=== PATIENT | female | born 1955 | race Caucasian/White ===

== ENCOUNTER → 2016-05-04 | Outpatient (CLI) | payer OTHER ==
[~2016-05-04] MED LIST: FLOM5CAP PO; PERC5TAB6 PO
[2016-05-04 12:33] LABS: ALBUMIN 3.5 GM/DL (3.2-5.2); ALBUMIN/GLOBULIN RATIO 1.09 (1.00-1.93); ALKALINE PHOSPHATASE 40 U/L (45-117); ALT/SGPT 57 U/L (12-78); ANION GAP 10 MEQ/L (8-16); AST/SGOT 30 U/L (15-37); BILIRUBIN,TOTAL 0.5 MG/DL (0.2-1.0); BLOOD UREA NITROGEN 12 MG/DL (7-18); CALCIUM LEVEL 8.6 MG/DL (8.8-10.2); CARBON DIOXIDE LEVEL 28 MEQ/L (21-32); CHLORIDE LEVEL 106 MEQ/L (98-107); CHOLESTEROL LEVEL 136 MG/DL (<200); CREATININE FOR GFR 0.66 MG/DL (0.55-1.02); GLOMERULAR FILTRATION RATE > 60.0 (>45); GLUCOSE, FASTING 117 MG/DL (80-110); SODIUM LEVEL 144 MEQ/L (136-145); TOTAL PROTEIN 6.7 GM/DL (6.4-8.2); TRIGLYCERIDES LEVEL 123 MG/DL (<150)
== END ==
LOC: M WUC 10:13
PROVIDERS: ATTEND Emergency Medicine
DX: R73.01 Impaired fasting glucose (principal); E55.9 Vitamin D deficiency, unspecified; I10 Essential (primary) hypertension

== ENCOUNTER → 2016-06-14 | Outpatient (REF) | payer OTHER | LOC: M SFHCWAGY 09:25 | PROVIDERS: ATTEND Nurse Practitioner Women's Health | DX: Z12.4 Encounter for screening for malignant neoplasm of cervix (principal); Z12.31 Encounter for screening mammogram for malignant neoplasm of breast ==

== ENCOUNTER → 2016-06-14 | Outpatient (CLI) | payer OTHER ==
--- NOTE | 2016-06-14 13:43 | REPMRS ---
Patient History The patient states she had a clinical breast exam in 06/27 Patient is postmenopausal. Family history of colorectal cancer in sister at age 56, ovarian cancer in sister at age 51, and breast cancer in maternal grandmother at age 50 or over. Took hormonal contraceptives for 1 year. Digital Woman Screen Mammo: June 14, 2016 - Exam #: [id number] Bilateral CC and MLO view(s) were taken. Technologist: Natalie Prado, Technologist Prior study comparison: June 01, 2015, digital woman screen mammo performed at [facility]. May 29, 2014, digital woman screen mammo performed at [facility]. May 28, 2013, bilateral bilat screen digital mammo, performed at [facility] FINDINGS: There are scattered fibroglandular densities. There has been no change in the appearance of the mammogram from the prior studies. There is a mild amount of scattered fibroglandular density which is fairly symmetric. There is no interval development of dominant mass, architectural distortion, or clustered microcalcification suggestive of malignancy. ASSESSMENT: BI-RADS/ACR category 1 mammogram. Negative. Recommendation Routine screening mammogram in 1 year (for women over age 40). This mammogram was interpreted with the aid of an FDA-approved computer-aided dectection system. Electronically Signed By: Braulio Elias MD 06/14/16 [id number]
== END ==
LOC: M WHC 09:17
PROVIDERS: ATTEND Nurse Practitioner Women's Health
DX: Z12.31 Encounter for screening mammogram for malignant neoplasm of breast (principal); Z78.0 Asymptomatic menopausal state; Z80.0 Family history of malignant neoplasm of digestive organs; Z80.41 Family history of malignant neoplasm of ovary

== ENCOUNTER → 2016-06-14 | Outpatient (CLI) | payer OTHER ==
--- NOTE | 2016-06-15 13:33 | DEXA ---
AP SPINE L1 - L4 1.440 2.0 2.4 LT FEMUR TOTAL 1.207 1.6 2.0 RT FEMUR TOTAL 1.232 1.8 2.1 TOTAL BODY TOTAL OTHER DUAL FEMUR FRAX* ASSESSMENT Risk factors: None. 10 year probability of fracture Major osteoporotic fracture 5.8 % Hip fracture 0.1 % COMMENTS: Normal bone densitometry of the spine and hips. The density of the spine has increased 11.4% since the initial exam on 2005. The spine density has increased 7.5% since the most recent exam on 04/10/2008. The density of the left hip has decreased 4.8% since the initial exam on 2005. The density of the left hip has decreased 5.7% since the most recent exam on . The density of the right hip has increased 4.9% since the initial exam on 2005. The density of the right hip has increased 1.2% since the most recent exam on . FOLLOW-UP: Recommendation for the next bone density exam: 5 years. MARA
== END ==
LOC: M WHC 09:21
PROVIDERS: ATTEND Emergency Medicine
DX: M81.0 Age-related osteoporosis without current pathological fracture (principal)

== ENCOUNTER → 2016-07-13 | Outpatient (REF) | payer OTHER | LOC: M LAB REF 19:54 | PROVIDERS: ATTEND Physician Assistant Medical | DX: R31.9 Hematuria, unspecified (principal) ==

== ENCOUNTER → 2016-07-21 | Outpatient (REF) | payer OTHER ==
[2016-07-21 19:20] LABS: CALCIUM OXALATE CRYSTALS MODERATE; YEAST LIKE CELL URINE AUTO SMALL
== END ==
LOC: M SMT 16:47
PROVIDERS: ATTEND Nurse Practitioner Women's Health
DX: R31.29 Other microscopic hematuria (principal)

== ENCOUNTER → 2016-08-03 | Outpatient (CLI) | payer OTHER ==
[~2016-08-03] MED LIST changes: +ISOVUE-370 76% 100ML VIAL (Q9967) As Ordered ONE
--- NOTE | 2016-08-03 15:52 | REP ---
Clinical: Microscopic hematuria. Technique: Axial precontrast, contrast enhanced, and delayed images of the abdomen and pelvis using 100 ml Isovue 370 intravenous contrast material coronal and sagittal re-formations. Comparison: 10/07/2015. Findings: There is mild acute left-sided obstructive uropathy including perinephric and proximal periureteral stranding as well as associated hydroureteronephrosis secondary to a 7 mm calculus obstructing the ureteropelvic junction (images 70 - 71). No further urinary tract calcifications are appreciated. The kidneys demonstrate few bilateral cysts measuring up to 2 cm in the upper pole right kidney and 1.5 cm mid pole left kidney. There is evidence for mild cortical scarring along the lateral aspect of the left kidney which appears chronic. The bladder is unremarkable. Liver, spleen, pancreas, and bilateral adrenal glands are normal. The patient is status post cholecystectomy with compensatory dilatation to the common bile duct. The enteric system is without obstruction or acute inflammatory process and few scattered sigmoid diverticula are noted without acute diverticulitis. Pelvis again demonstrates normal bladder as well as normal uterus / adnexa. No pelvic fluid or ascites. No free air. No adenopathy. Vasculature is normal. Musculoskeletal structures are intact without focal osseous abnormality. Lung bases are clear. Impression: 1. Acute mild left-sided obstructive uropathy with a 7 mm calculus at the ureteropelvic junction. Few bilateral renal cysts measuring up to 2 cm diameter. 2. Few scattered colonic diverticula without acute diverticulitis. Signed by Jovanni Sanches MD 08/03/2016 03:44 P
== END ==
LOC: M RAD 14:10
PROVIDERS: ATTEND Nurse Practitioner Women's Health
DX: R31.29 Other microscopic hematuria (principal); N20.0 Calculus of kidney; N28.1 Cyst of kidney, acquired; K57.30 Diverticulosis of large intestine without perforation or abscess without bleeding
CPT/HCPCS: 74178; Q9967

== ENCOUNTER → 2016-08-18 | Day surgery (SDC) | payer OTHER ==
[~2016-08-18] VITALS: Ht 149.9 cm; Wt 94.3 kg
[~2016-08-18] MED LIST changes: +ASPI81CH3 PO; +ATEN50TA2 PO; +BIOT50004 PO; +DRIS50002 PO; +FISH5CAP PO; +GLUC1CAP9 PO; +GLUC1TAB PO; +GLYCOPYRROLATE INJ 0.2 MG/ML 2 ML VIAL As Ordered ONE; +HYDR50TAB PO; -ISOVUE-370 76% 100ML VIAL (Q9967) As Ordered ONE; +LIDOCAINE 2% INJ 100 MG/5 ML SDV (FOR ANES.) As Ordered ONE; +LR 1,000 ML IV SCH; +MIDAZOLAM INJ 2 MG/2 ML VIAL (J2250) As Ordered ONE; +MULT1TAB18 PO; +MYRB50TA PO; +ONDANSETRON 4MG/2ML VIAL (J2405) As Ordered ONE; +ONDANSETRON 4MG/2ML VIAL (J2405) IV PRN; +PERCOCET 5MG/325MG TAB As Ordered ONE; +PERCOCET 5MG/325MG TAB PO PRN; +PROPOFOL 200 MG/20 ML VIAL As Ordered ONE; +RA C PO; +SUCCINYLCHOLINE 100 MG/5 ML SYRINGE (J0330) As Ordered ONE; +VITA400T15 PO; +VITA50003 PO; +XYZA5TAB4 PO; +ceFAZolin 2 GM/D5W 50 ML IV BAG (J0690) As Ordered ONE; +dexameTHASONE 4 MG/ML 1ML VIAL (J1100) As Ordered ONE; +ePHEDrine SULFATE 25 MG/5 ML(5MG/ML) SYRINGE As Ordered ONE; +fentaNYL 100 MCG/2 ML INJECTION (J3010) As Ordered ONE
--- NOTE | 2016-08-18 08:52 | REP ---
KUB: Single view. History: 7 mm left UPJ stone. Comparison: KUB study November 19, 2015. Comparison is made with CT examination 08/03/2016. Findings: There is a surgical clip in the right upper quadrant suggesting previous cholecystectomy. The bowel gas pattern is normal. Psoas margins and flank stripes are intact. No mass or organomegaly is seen. There is a faint 4 x 6 mm calcific opacity projecting at the upper pole left kidney consistent with an intrarenal calcification. There is vascular calcification in the left pelvis just below the SI joint which is unchanged from December 01, 2015 study. There is a faint opacity over the left psoas margin at the level of the transverse process at L4. This is equivocal. No definite ureteral calculus is seen on today's radiographs. Signed by Oz Elias MD 08/18/2016 10:18 A
--- NOTE | 2016-08-18 12:13 | REP ---
RETROGRADE PYELOGRAM: Two views. HISTORY: Kidney stone. 6 seconds of fluoroscopy time is reported. FINDINGS: A sequence of two fluoroscopically obtained last image hold films of the abdomen document double pigtail ureteral stent placement and ureteral contrast. No laterality markers. Signed by Oz Elias MD 08/18/2016 03:07 P
[2016-08-18] MEDS: PERCOCET 5MG/325MG TAB PO PRN ×2 (12:35→13:05)
[2016-08-18] MEDS: fentaNYL 100 MCG/2 ML INJECTION (J3010) IV PRN ×4 (12:36→13:20)
--- NOTE | 2016-08-18 13:01 | RO ---
DATE OF PROCEDURE: 08/18/2016 PREPROCEDURE DIAGNOSIS: Left ureteral stone. POSTPROCEDURE DIAGNOSIS: Left ureteral stone. PROCEDURE: Cystoscopy, left ureteroscopy and basket extraction of stone, left retrograde pyelogram with intraoperative interpretation of images, left ureteral stent placement. SURGEON: Dr. Rolan Quiles CHURNER: None. ANESTHESIA: General. OPERATIVE INDICATIONS: This is a 60-year-old female who was brought to the operating room today for a planned left Extracorporeal shock wave lithotripsy for a 7 mm proximal left ureteral stone. The stone had migrated distally and we could not see the stone well with fluoroscopy for planned Extracorporeal shock wave lithotripsy. We therefore did not proceed with Extracorporeal shock wave lithotripsy and obtained a consent from the to proceed with a left ureteroscopy and basket extraction of stone. DESCRIPTION OF PROCEDURE: The patient was brought to the operating room, where general anesthesia was induced. Prophylactic antibiotics were infused. The patient was then placed in the dorsal lithotomy position and prepped and draped in the usual sterile fashion. A rigid cystoscope was then advanced into the urethral meatus and advanced into the bladder. A wire was then advanced up the left collecting system. The wire was secured to the drape to serve as a safety wire. We then went up the left collecting system with a short semi rigid ureteroscope and within the distal left ureter a 7 mm stone was seen. A basket was then introduced. I broke the stone into two smaller fragments. Each of these fragments were removed using a basket. Once that was done, the remainder of the examination showed no additional stones. A retrograde pyelogram was performed and was notable for moderate to severe left hydroureteronephrosis. There was also a moderate amount of edema and scarring in the area where the stone was found. Because of this, decision was made to leave a stent. At this point, the ureteroscope was removed and the previously placed wire was utilized to advance a #6-Belarusian x 22-32 cm JJ ureteral stent up the left collecting system. The wire was then removed, and there were adequate curls of the stent in the right renal pelvis and in the bladder. The bladder was then emptied of all fluid, and this marked the conclusion of the procedure. The patient was then taken out of the dorsal lithotomy position, awakened from anesthesia, and transported to the recovery room in stable condition. ESTIMATED BLOOD LOSS: 0 mL. COMPLICATIONS: None. SPECIMENS: Kidney stone fragments. PLAN: The patient will followup in the clinic in a few weeks for stent removal.
[2016-08-18 14:45] VITALS: BP 165/84
== END | disposition home or self-care (01) ==
LOC: M SDC 06:55
PROVIDERS: ATTEND Urology
DX: N20.1 Calculus of ureter (principal); I10 Essential (primary) hypertension; K57.32 Diverticulitis of large intestine without perforation or abscess without bleeding; R32 Unspecified urinary incontinence; E78.5 Hyperlipidemia, unspecified; R29.898 Other symptoms and signs involving the musculoskeletal system; Z88.8 Allergy status to other drugs, medicaments and biological substances; Z79.899 Other long term (current) drug therapy; Z79.82 Long term (current) use of aspirin; Z98.51 Tubal ligation status
CPT/HCPCS: 52332; 52352; 74000; 74420; 82360; 88300; C1726; C2617; J0330; J0690; J1100; J2250; J2405; J3010

== ENCOUNTER → 2016-08-23 | Outpatient (REF) | payer OTHER ==
[~2016-08-23] MED LIST changes: -GLYCOPYRROLATE INJ 0.2 MG/ML 2 ML VIAL As Ordered ONE; -LIDOCAINE 2% INJ 100 MG/5 ML SDV (FOR ANES.) As Ordered ONE; -LR 1,000 ML IV SCH; -MIDAZOLAM INJ 2 MG/2 ML VIAL (J2250) As Ordered ONE; -ONDANSETRON 4MG/2ML VIAL (J2405) As Ordered ONE; -ONDANSETRON 4MG/2ML VIAL (J2405) IV PRN; -PERCOCET 5MG/325MG TAB As Ordered ONE; -PERCOCET 5MG/325MG TAB PO PRN; -PROPOFOL 200 MG/20 ML VIAL As Ordered ONE; -SUCCINYLCHOLINE 100 MG/5 ML SYRINGE (J0330) As Ordered ONE; -ceFAZolin 2 GM/D5W 50 ML IV BAG (J0690) As Ordered ONE; -dexameTHASONE 4 MG/ML 1ML VIAL (J1100) As Ordered ONE; -ePHEDrine SULFATE 25 MG/5 ML(5MG/ML) SYRINGE As Ordered ONE; -fentaNYL 100 MCG/2 ML INJECTION (J3010) As Ordered ONE
== END ==
LOC: M SMT 17:23
PROVIDERS: ATTEND Nurse Practitioner Women's Health
DX: R30.0 Dysuria (principal)

== ENCOUNTER → 2016-09-20 | Outpatient (REF) | payer OTHER ==
[~2016-09-20] MED LIST changes: +PERC5TAB12 PO; -PERC5TAB6 PO; +VITA1CAP40 PO; -VITA50003 PO
== END ==
LOC: M SMT 17:38
PROVIDERS: ATTEND Nurse Practitioner Women's Health
DX: N39.0 Urinary tract infection, site not specified (principal)

== ENCOUNTER 2017-01-30 06:46 | Day surgery (SDC) | payer OTHER ==
[~2017-01-30] VITALS: Ht 149.9 cm; Wt 92.1 kg
[2017-01-30] MEDS: NS 1,000 ML IV ONE (07:00)
--- NOTE | 2017-01-30 08:05 | ROOR ---
Patient Name: Eleni Prabhakar Procedure Date: 01/30/2017 7:27 AM Date of : 1955 Age: 61 Room: [facility] Gender: Female Note Status: Finalized Procedure: Total Colonoscopy to Cecum + Biopsy Polypectomy Indications: Colon cancer screening in patient at increased risk: Colorectal cancer in sister, High risk colon cancer surveillance: Personal history of colonic polyps, Last colonoscopy: 2014 Providers: John Barr MD Referring MD: SISSY MARTINEZ MD Requesting Provider: Medicines: Monitored Anesthesia Care Complications: No immediate complications. Procedure: Pre-Anesthesia Assessment: - The heart rate, respiratory rate, oxygen saturations, blood pressure, adequacy of pulmonary ventilation, and response to care were monitored throughout the procedure. The Colonoscope was introduced through the anus and advanced to the cecum, identified by appendiceal orifice and ileocecal valve. The colonoscopy was performed without difficulty. The patient tolerated the procedure well. The quality of the bowel preparation was excellent. Findings: The perianal and digital rectal examinations were normal. Non-bleeding internal hemorrhoids were found during retroflexion. The hemorrhoids were small and Grade I (internal hemorrhoids that do not prolapse). Multiple small and large-mouthed diverticula were found in the recto-sigmoid colon, sigmoid colon and descending colon. A small polyp was found in the transverse colon. The polyp was sessile. The polyp was removed with a jumbo cold forceps. Resection and retrieval were complete. The exam was otherwise without abnormality on direct and retroflexion views. Impression: - Non-bleeding internal hemorrhoids. - Diverticulosis in the recto-sigmoid colon, in the sigmoid colon and in the descending colon. - One small polyp in the transverse colon, removed with a jumbo cold forceps. Resected and retrieved. - The examination was otherwise normal on direct and retroflexion views. - The exam was otherwise normal to the cecum. Recommendation: - Patient has a contact number available for emergencies. The signs and symptoms of potential delayed complications were discussed with the patient. Return to normal activities tomorrow. Written discharge instructions were provided to the patient. - High fiber diet. - Discharge patient to home. - Continue present medications. - Await pathology results. - Telephone GI clinic for pathology results in 1 week. - Repeat colonoscopy in 5 years for surveillance based on pathology results. - Return to referring physician. - The findings and recommendations were discussed with the patient's family. John Barr MD John Barr MD 01/30/2017 8:05:33 AM This report has been signed electronically. Number of Addenda: 0 Note Initiated On: 01/30/2017 7:27 AM Estimated Blood Loss: Estimated blood loss: none.
[2017-01-30] MEDS ORDERED: LIDOCAINE 2% INJ 100 MG/5 ML SDV (FOR ANES.) As Ordered ONE (08:15)
[2017-01-30] MEDS ORDERED: PROPOFOL 500 MG/50 ML VIAL As Ordered ONE (08:15)
[2017-01-30 08:20] VITALS: BP 165/73
== END 2017-01-30 08:37 | disposition home or self-care (01) ==
LOC: M OPP 06:46
PROVIDERS: ATTEND Internal Medicine Gastroenterology
DX: Z12.11 Encounter for screening for malignant neoplasm of colon (principal); K64.0 First degree hemorrhoids; K57.30 Diverticulosis of large intestine without perforation or abscess without bleeding; D12.3 Benign neoplasm of transverse colon; Z80.0 Family history of malignant neoplasm of digestive organs; Z86.010 Personal history of colon polyps; I10 Essential (primary) hypertension; Z87.442 Personal history of urinary calculi; M13.872 Other specified arthritis, left ankle and foot; Z79.82 Long term (current) use of aspirin

== ENCOUNTER → 2017-05-03 | Outpatient (CLI) | payer OTHER ==
[2017-05-03 09:46] LABS: ESTIMATED AVERAGE GLUCOSE 123 MG/DL (60-110); HEMOGLOBIN A1c 5.9 %
[2017-05-03 09:55] LABS: ALBUMIN 3.7 GM/DL (3.2-5.2); ALBUMIN/GLOBULIN RATIO 1.23 (1.00-1.93); ALKALINE PHOSPHATASE 43 U/L (45-117); ALT/SGPT 37 U/L (12-78); ANION GAP 9 MEQ/L (8-16); AST/SGOT 18 U/L (7-37); BILIRUBIN,TOTAL 0.4 MG/DL (0.2-1.0); BLOOD UREA NITROGEN 16 MG/DL (7-18); CALCIUM LEVEL 8.6 MG/DL (8.8-10.2); CARBON DIOXIDE LEVEL 28 MEQ/L (21-32); CHLORIDE LEVEL 108 MEQ/L (98-107); CHOLESTEROL LEVEL 149 MG/DL (<200); CREATININE FOR GFR 0.56 MG/DL (0.55-1.30); GLOMERULAR FILTRATION RATE > 60.0 (>45); GLUCOSE, FASTING 113 MG/DL (70-100); HDL CHOLESTEROL 47 MG/DL (>40); LDL CHOLESTEROL 81.4 MG/DL (<100); NON-HDL-C 102 MG/DL; POTASSIUM SERUM 3.9 MEQ/L (3.5-5.1); SODIUM LEVEL 145 MEQ/L (136-145); TOTAL PROTEIN 6.7 GM/DL (6.4-8.2); TRIGLYCERIDES LEVEL 103 MG/DL (<150)
[2017-05-03 11:05] LABS: TOTAL 25(OH) VITAMIN D 50.4 NG/ML (30.0-100.0)
== END ==
LOC: M WUC 08:05
DX: E78.2 Mixed hyperlipidemia (principal); E55.9 Vitamin D deficiency, unspecified; R73.01 Impaired fasting glucose; I10 Essential (primary) hypertension

== ENCOUNTER → 2017-05-16 | Outpatient (CLI) | payer OTHER ==
[2017-05-16 12:37] LABS: FERRITIN 115 NG/ML (8-252); IRON (FE) 130 UG/DL (50-170); PERCENT SATURATION 41.1 % (13.2-45.0); TOTAL IRON BINDING CAPACITY 316 UG/DL (250-450)
== END ==
LOC: M WUC 09:44
DX: E83.110 Hereditary hemochromatosis (principal)
CPT/HCPCS: 83550

== ENCOUNTER → 2017-11-01 | Outpatient (CLI) | payer OTHER ==
[2017-11-01 14:12] LABS: TOTAL 25(OH) VITAMIN D 57.4 NG/ML (30.0-100.0)
[2017-11-01 14:31] LABS: ALBUMIN 3.5 GM/DL (3.2-5.2); ALBUMIN/GLOBULIN RATIO 1.09 (1.00-1.93); ALKALINE PHOSPHATASE 36 U/L (45-117); ALT/SGPT 54 U/L (12-78); ANION GAP 9 MEQ/L (8-16); AST/SGOT 22 U/L (7-37); BILIRUBIN,TOTAL 0.4 MG/DL (0.2-1.0); BLOOD UREA NITROGEN 15 MG/DL (7-18); CALCIUM LEVEL 8.7 MG/DL (8.8-10.2); CARBON DIOXIDE LEVEL 29 MEQ/L (21-32); CHLORIDE LEVEL 108 MEQ/L (98-107); CHOLESTEROL LEVEL 150 MG/DL (<200); CHOLESTEROL RISK RATIO 3.333 (<5); CREATININE FOR GFR 0.62 MG/DL (0.55-1.30); GLOMERULAR FILTRATION RATE > 60.0 (>45); GLUCOSE, FASTING 118 MG/DL (70-100); HDL CHOLESTEROL 45 MG/DL (>40); LDL CHOLESTEROL 82.6 MG/DL (<100); NON-HDL-C 105 MG/DL; POTASSIUM SERUM 3.7 MEQ/L (3.5-5.1); SODIUM LEVEL 146 MEQ/L (136-145); TOTAL PROTEIN 6.7 GM/DL (6.4-8.2); TRIGLYCERIDES LEVEL 112 MG/DL (<150)
[2017-11-01 15:04] LABS: ESTIMATED AVERAGE GLUCOSE 117 MG/DL (60-110); HEMOGLOBIN A1c 5.7 %
== END ==
LOC: M WUC 09:02
DX: E78.2 Mixed hyperlipidemia (principal); E55.9 Vitamin D deficiency, unspecified; R73.01 Impaired fasting glucose; I10 Essential (primary) hypertension
CPT/HCPCS: 80053

== ENCOUNTER 2018-04-07 15:03 | Emergency (ER) | payer OTHER ==
[~2018-04-07] VITALS: Ht 149.9 cm; Wt 90.9 kg
[~2018-04-07 15:03] MED LIST changes: -DRIS50002 PO; +DRIS50003 PO; +FLOM0.4C39 PO; -FLOM5CAP PO; -RA C PO; +RA C100C11 PO; -VITA1CAP40 PO; +VITA50005 PO
--- NOTE | 2018-04-07 16:09 | REP ---
Clinical: Trauma . Comparison: None . Findings: The ventricles, sulci, and cisterns are normal in position and appearance. Bray-white differentiation is maintained. No acute intracranial hemorrhage, mass/mass effect, pathology or trauma/injury. No evidence for acute infarction. No extra-axial fluid collection. Calvarium is intact. Paranasal sinuses and mastoid air cells are clear. Impression: Normal noncontrast head CT. No evidence for acute intracranial pathology or trauma/injury. Electronically Signed by Jovanni Sanches MD 04/07/2018 04:01 P
[2018-04-07 16:33] VITALS: BP 146/71
== END 2018-04-07 16:45 | disposition home or self-care (01) ==
LOC: M ED 15:03
DX: S09.90XA Unspecified injury of head, initial encounter (principal); W00.0XXA Fall on same level due to ice and snow, initial encounter; Y92.096 Garden or yard of other non-institutional residence as the place of occurrence of the external cause; I10 Essential (primary) hypertension; Z88.8 Allergy status to other drugs, medicaments and biological substances; Z79.899 Other long term (current) drug therapy; Z79.82 Long term (current) use of aspirin

== ENCOUNTER → 2018-05-13 | Outpatient (CLI) | payer OTHER ==
[2018-05-13 18:49] LABS: ALBUMIN 3.5 GM/DL (3.2-5.2); ALT/SGPT 40 U/L (12-78); BILIRUBIN,TOTAL 0.5 MG/DL (0.2-1.0); BLOOD UREA NITROGEN 14 MG/DL (7-18); CALCIUM LEVEL 8.4 MG/DL (8.8-10.2); CARBON DIOXIDE LEVEL 30 MEQ/L (21-32); CHLORIDE LEVEL 107 MEQ/L (98-107); CHOLESTEROL LEVEL 165 MG/DL (<200); CHOLESTEROL RISK RATIO 3.666 (<5); CREATININE FOR GFR 0.59 MG/DL (0.55-1.30); GLOMERULAR FILTRATION RATE > 60.0 (>45); GLUCOSE, FASTING 111 MG/DL (70-100); HDL CHOLESTEROL 45 MG/DL (>40); LDL CHOLESTEROL 97 MG/DL (<100); NON-HDL-C 120 MG/DL; POTASSIUM SERUM 3.8 MEQ/L (3.5-5.1); SODIUM LEVEL 143 MEQ/L (136-145); TOTAL PROTEIN 6.6 GM/DL (6.4-8.2); TRIGLYCERIDES LEVEL 115 MG/DL (<150)
[2018-05-13 19:00] LABS: HEMOGLOBIN A1c 5.7 %
[2018-05-14 10:59] LABS: TOTAL 25(OH) VITAMIN D 63.6 NG/ML (30.0-100.0)
== END ==
LOC: M WUC 08:46
PROVIDERS: ATTEND Physician Assistant
DX: I10 Essential (primary) hypertension (principal); E78.2 Mixed hyperlipidemia; E55.9 Vitamin D deficiency, unspecified; R73.01 Impaired fasting glucose

== ENCOUNTER → 2018-06-21 | Outpatient (CLI) | payer OTHER ==
[~2018-06-21] MED LIST changes: -ASPI81CH3 PO; +ASPI81CH48 PO
--- NOTE | 2018-06-21 17:20 | REPMRS ---
Patient History The patient states she has not had a clinical breast exam in over a year. Patient is postmenopausal. Family history of ovarian cancer at age 51 in sister, colorectal cancer at age 56 in sister, breast cancer at age 50 or over in maternal grandmother. Took hormonal contraceptives for 1 year. Digital Woman Screen Mammo: June 21, 2018 - Exam #: [id number] Bilateral CC and MLO view(s) were taken. Technologist: Mally Hodge Technologist Prior study comparison: June 19, 2017, digital woman screen mammo performed at [facility]. June 14, 2016, digital woman screen mammo performed at [facility]. June 01, 2015, digital woman screen mammo performed at [facility]. FINDINGS: There are scattered fibroglandular densities. There has been no change in the appearance of the mammogram from the prior studies. There is a mild amount of scattered fibroglandular density which is fairly symmetric. There is no interval development of dominant mass, architectural distortion, or clustered microcalcification suggestive of malignancy. 3-D tomosynthesis shows no additional findings. Assessment: BI-RADS/ACR category 1 mammogram. Negative Mammogram. Recommendation Routine screening mammogram of both breasts in 1 year (for women over age 40). This patient's Lifetime Breast Cancer RIsk is estimated at 6.7 %. This mammogram was interpreted with the aid of an FDA-approved computer-aided dectection system. Electronically Signed By: Braulio Elias MD 06/21/18 [id number]
== END ==
LOC: M WHC 13:50
PROVIDERS: ATTEND Physician Assistant
DX: Z12.31 Encounter for screening mammogram for malignant neoplasm of breast (principal); Z78.0 Asymptomatic menopausal state; Z80.41 Family history of malignant neoplasm of ovary; Z80.0 Family history of malignant neoplasm of digestive organs; Z92.0 Personal history of contraception

== ENCOUNTER → 2018-09-07 | Outpatient (REF) | payer MEDICARE, OTHER ==
[2018-09-07 14:03] LABS: APPEARANCE, URINE HAZY (CLEAR); BACTERIA, URINE AUTO NEGATIVE (NEGATIVE); BILIRUBIN, URINE AUTO NEGATIVE (NEGATIVE); BLOOD, URINE BLOOD NEGATIVE (NEGATIVE); COLOR, URINE YELLOW (YELLOW); GLUCOSE, URINE (UA) AUTO NEGATIVE (NEGATIVE); KETONE, URINE AUTO NEGATIVE (NEGATIVE); LEUKOCYTE ESTERASE, URINE AUTO NEGATIVE (NEGATIVE); MUCUS, URINE SMALL (NEGATIVE); NITRITE, URINE AUTO NEGATIVE (NEGATIVE); PROTEIN, URINE AUTO NEGATIVE (NEGATIVE); RBC, URINE AUTO 0 /HPF (0-3); SPECIFIC GRAVITY URINE AUTO 1.018 (1.002-1.035); SQUAMOUS EPITHELIAL CELL UR AU 0 /HPF (0-6); UROBILINOGEN, URINE AUTO 0.2 mg/dL (0.0-2.0); WBC, URINE AUTO 0 /HPF (0-3)
== END ==
LOC: M SMT 13:30
PROVIDERS: ATTEND Nurse Practitioner Women's Health
DX: R31.29 Other microscopic hematuria (principal)

== ENCOUNTER → 2018-10-25 | Outpatient (CLI) | payer MEDICARE, OTHER ==
--- NOTE | 2018-10-25 15:34 | REP ---
Foot series: Four views. History: Pain. Findings: Four views of the left foot demonstrate overall normal mineralization. There is a large plantar calcaneal spur and a small Achilles spur is seen. There is mild tibiotalar spurring noted on the lateral radiograph. Diffuse soft tissue swelling is noted. Impression: No acute bony abnormality. Heel spurs. Electronically Signed by Oz Elias MD 10/25/2018 05:37 P
== END ==
LOC: M WUC 11:52
PROVIDERS: ATTEND Nurse Practitioner Family
DX: M77.32 Calcaneal spur, left foot (principal)

== ENCOUNTER → 2018-11-01 | Outpatient (CLI) | payer MEDICARE, OTHER ==
[2018-11-01 13:06] LABS: ALBUMIN 3.5 GM/DL (3.2-5.2); ALT/SGPT 52 U/L (12-78); BILIRUBIN,TOTAL 0.4 MG/DL (0.2-1.0); BLOOD UREA NITROGEN 14 MG/DL (7-18); CALCIUM LEVEL 9.3 MG/DL (8.8-10.2); CARBON DIOXIDE LEVEL 31 MEQ/L (21-32); CHLORIDE LEVEL 109 MEQ/L (98-107); CREATININE FOR GFR 0.62 MG/DL (0.55-1.30); GLOMERULAR FILTRATION RATE > 60.0 (>45); GLUCOSE, FASTING 122 MG/DL (70-100); POTASSIUM SERUM 4.2 MEQ/L (3.5-5.1); SODIUM LEVEL 146 MEQ/L (136-145); TOTAL PROTEIN 6.5 GM/DL (6.4-8.2)
== END ==
LOC: M WUC 08:24
PROVIDERS: ATTEND Physician Assistant
DX: R73.01 Impaired fasting glucose (principal)

== ENCOUNTER → 2018-12-10 | Outpatient (CLI) | payer MEDICARE, OTHER ==
--- NOTE | 2018-12-10 17:04 | REP ---
Acute abdominal series three views including PA chest and supine upright abdomen: PA chest: There are no comparisons. The lung villegas are clear. Cardiac size is normal. The va, mediastinum, skeletal structures are unremarkable. There is no free subdiaphragmatic air. Impression: Negative PA chest. Abdomen, supine upright views: Comparison is 2015. The bowel gas pattern is normal. There is a right upper quadrant surgical clip, unchanged. There are no calcifications. There is a small volume of fecal residue in the colon. Impression: Normal bowel gas pattern. Small volume of fecal residue in the colon. Electronically Signed by Adan Cline MD 12/10/2018 04:56 P
== END ==
LOC: M RAD 15:49
PROVIDERS: ATTEND Family Medicine
DX: K59.00 Constipation, unspecified (principal)

== ENCOUNTER → 2019-04-24 | Outpatient (REF) | payer MEDICARE, OTHER ==
[2019-04-24 18:44] LABS: VITAMIN B12 LEVEL 618 PG/ML
[2019-04-24 18:45] LABS: FOLATE > 24.0 NG/ML
== END ==
LOC: M LABNEURO 14:39
PROVIDERS: ATTEND Psychiatry & Neurology Neurology
DX: E03.9 Hypothyroidism, unspecified (principal); D51.0 Vitamin B12 deficiency anemia due to intrinsic factor deficiency

== ENCOUNTER → 2019-07-25 | Outpatient (CLI) | payer MEDICARE, OTHER ==
[2019-07-25 10:45] LABS: BASO # 0.1 10^3/uL (0.0-0.2); BASO % 1.1 % (0.0-1.0); EOS # 0.1 10^3/uL (0.0-0.5); EOS % 1.5 % (0.0-3.0); HEMATOCRIT 43.9 % (36.0-47.0); HEMOGLOBIN 15.2 g/dl (12.0-15.5); LYMPH # 2.2 10^3/uL (1.5-5.0); MEAN CORPUSCULAR HGB CONC 34.6 g/dl (32.0-36.5); MEAN CORPUSCULAR VOLUME 95.2 fl (80.0-96.0); MONO # 0.5 10^3/uL (0.0-0.8); MONO % 8.6 % (0.0-5.0); NEUTROPHILS # 3.2 10^3/uL (1.5-8.5); NEUTROPHILS % 52.2 % (36.0-66.0); PLATELET COUNT, AUTOMATED 193 10^3/uL (150-450); RED BLOOD COUNT 4.61 10^6/uL (4.00-5.40); WHITE BLOOD COUNT 6.2 10^3/uL (4.0-10.0)
[2019-07-25 11:12] LABS: HEMOGLOBIN A1c 6.1 %
[2019-07-25 13:56] LABS: ALBUMIN 3.7 GM/DL (3.2-5.2); ALT/SGPT 54 U/L (12-78); BILIRUBIN,TOTAL 0.5 MG/DL (0.2-1.0); BLOOD UREA NITROGEN 16 MG/DL (7-18); CALCIUM LEVEL 9.3 MG/DL (8.8-10.2); CARBON DIOXIDE LEVEL 30 MEQ/L (21-32); CHLORIDE LEVEL 107 MEQ/L (98-107); CHOLESTEROL LEVEL 164 MG/DL (<200); CHOLESTEROL RISK RATIO 3.489 (<5); CREATININE FOR GFR 0.68 MG/DL (0.55-1.30); GLOMERULAR FILTRATION RATE > 60.0 (>45); GLUCOSE, FASTING 137 MG/DL (70-100); HDL CHOLESTEROL 47 MG/DL (>40); LDL CHOLESTEROL 93 MG/DL (<100); NON-HDL-C 117 MG/DL; POTASSIUM SERUM 3.8 MEQ/L (3.5-5.1); SODIUM LEVEL 144 MEQ/L (136-145); TOTAL PROTEIN 6.9 GM/DL (6.4-8.2); TRIGLYCERIDES LEVEL 120 MG/DL (<150)
[2019-07-25 14:03] LABS: TOTAL 25(OH) VITAMIN D 54.1 NG/ML (30.0-100.0)
== END ==
LOC: M WUC 08:09
PROVIDERS: ATTEND Physician Assistant
DX: I10 Essential (primary) hypertension (principal); R73.01 Impaired fasting glucose; E55.9 Vitamin D deficiency, unspecified; J30.9 Allergic rhinitis, unspecified; E78.2 Mixed hyperlipidemia; Z79.899 Other long term (current) drug therapy

== ENCOUNTER → 2019-08-20 | Outpatient (CLI) | payer MEDICARE, OTHER ==
--- NOTE | 2019-08-20 16:53 | REPMRS ---
Patient History The patient states she had a clinical breast exam in August 2019. Family history of ovarian cancer at age 51 in sister, colorectal cancer at age 56 in sister, breast cancer at age 50 or over in maternal grandmother. Took hormonal contraceptives for 1 year. 3D TOMOSYNTHESIS WAS PERFORMED. The Theodora Fraser lifetime risk for breast cancer is 6.3%. VOLPARA DENSITY B. Digital Woman Screen Mammo: August 20, 2019 - Exam #: [id number] Bilateral CC and MLO view(s) were taken. Technologist: Viviana Hampton, Technologist Prior study comparison: June 21, 2018, bilateral digital woman screen mammo performed at [facility]. June 19, 2017, digital woman screen mammo performed at [facility]. FINDINGS: There are scattered fibroglandular densities. There has been no change in the appearance of the mammogram from the prior studies. There is a mild amount of residual fibroglandular tissue which is fairly symmetric. There is no interval development of dominant mass, architectural distortion, or clustered microcalcification suggestive of malignancy. Assessment: BI-RADS/ACR category 1 mammogram. Negative Mammogram. Recommendation Routine screening mammogram in 1 year (for women over age 40). This mammogram was interpreted with the aid of an FDA-approved computer-aided dectection system. Electronically Signed By: Adan Bray MD 08/20/19 [id number]
== END ==
LOC: M WHC 14:26
PROVIDERS: ATTEND Nurse Practitioner Women's Health
DX: Z01.419 Encounter for gynecological examination (general) (routine) without abnormal findings (principal); Z12.31 Encounter for screening mammogram for malignant neoplasm of breast; Z80.41 Family history of malignant neoplasm of ovary; Z80.0 Family history of malignant neoplasm of digestive organs; Z92.0 Personal history of contraception
CPT/HCPCS: 77063; 77067; 87624; G0101; G0123

== ENCOUNTER → 2019-08-20 | Outpatient (REF) | payer MEDICARE, OTHER | LOC: M SFHCWAGY 17:32 | PROVIDERS: ATTEND Nurse Practitioner Women's Health | DX: Z12.4 Encounter for screening for malignant neoplasm of cervix (principal); N95.2 Postmenopausal atrophic vaginitis | CPT/HCPCS: 87624; G0123 ==

== ENCOUNTER → 2020-01-02 | Outpatient (REF) | payer MEDICARE, OTHER | LOC: M LAB REF 08:24 | PROVIDERS: ATTEND Surgery | DX: L72.3 Sebaceous cyst (principal) ==

== ENCOUNTER → 2020-08-20 | Outpatient (CLI) | payer MEDICARE, OTHER ==
--- NOTE | 2020-08-20 15:05 | REPMRS ---
Patient History The patient states she had a clinical breast exam in May 2020. Family history of ovarian cancer at age 51 in sister, colorectal cancer at age 56 in sister, breast cancer at age 50 or over in maternal grandmother. Took hormonal contraceptives for 1 year. No breast complaints today Patient signed the MRS sheet Patient has had both Moderna vaccines in her left arm but doesn't remember the dates Priors on PACS Patient Identification Verified Digital Woman Screen Mammo: August 20, 2020 - Exam #: [id number] Bilateral CC and MLO view(s) were taken. Technologist: Chinyere Beard, Technologist Prior study comparison: August 20, 2019, bilateral digital woman screen mammo performed at [facility]. June 21, 2018, bilateral digital woman screen mammo performed at [facility]. FINDINGS: There are scattered fibroglandular densities. Screening. Digital screening (2D) mammography was performed bilaterally in the CC and MLO projections. Additionally, breast tomosynthesis (3D mammography) was performed bilaterally in the CC and MLO projections. Todays exam was compared to the prior exam/exams. By history, the patient has no complaints of a palpable breast abnormality or other significant breast complaints. The breasts are unchanged in size and shape. There are no erlin-soft tissue densities or spiculated masses. There is no internal architectural distortion. Once again, stable benign appearing calcifications are seen.There are no suspicious erlin-calcific clusters. Skin thickening or nipple retraction is not present. IMPRESSION: BI-RADS Category 2- Benign Findings. There is no evidence of malignant alteration of the breasts. Followup examination recommended in one year. The Volpara volumetric breast density category is B, there are scattered areas of fibroglandular density. This mammogram was read with the assistance of [employer],an FDA approved computer aided detection system for mammography. The lifetime Tyrer-Cuzick score is 5.9 % Negative x-ray reports should not delay surgical consultation if a dominant or clinically suspicious mass is present. Not all breast cancers can be identified by mammography. Therefore, we recommend that you continue to perform regular breast self-examination and physical examination and then promptly contact your physician of any concerns or changes. Adenosis and dense breasts may obscure an underlying neoplasm. Assessment: BI-RADS/ACR category 2 mammogram. Benign Findings. Recommendation Routine screening mammogram of both breasts in 1 year. Electronically Signed By: Silas Bates DO 08/20/20 [id number]
== END ==
LOC: M WHC 13:56
PROVIDERS: ATTEND Nurse Practitioner Family
DX: Z12.31 Encounter for screening mammogram for malignant neoplasm of breast (principal); Z80.3 Family history of malignant neoplasm of breast; R92.2 Inconclusive mammogram

== ENCOUNTER 2020-08-25 09:09 | Emergency (ER) | payer MEDICARE, OTHER ==
[~2020-08-25] VITALS: Ht 149.9 cm; Wt 96.4 kg
[2020-08-25 10:17] LABS: BASO # 0.1 10^3/uL (0.0-0.2); BASO % 1.1 % (0.0-1.0); EOS # 0.1 10^3/uL (0.0-0.5); EOS % 0.9 % (0.0-3.0); HEMATOCRIT 42.5 % (36.0-47.0); HEMOGLOBIN 14.7 g/dl (12.0-15.5); LYMPH # 2.1 10^3/uL (1.5-5.0); LYMPH % 38.5 % (24.0-44.0); MEAN CORPUSCULAR HEMOGLOBIN 32.5 pg (27.0-33.0); MEAN CORPUSCULAR HGB CONC 34.6 g/dl (32.0-36.5); MEAN CORPUSCULAR VOLUME 93.8 fl (80.0-96.0); MONO # 0.5 10^3/uL (0.0-0.8); MONO % 8.8 % (2.0-8.0); NEUTROPHILS # 2.7 10^3/uL (1.5-8.5); NEUTROPHILS % 50.3 % (36.0-66.0); PLATELET COUNT, AUTOMATED 184 10^3/uL (150-450); RED BLOOD COUNT 4.53 10^6/uL (4.00-5.40); WHITE BLOOD COUNT 5.4 10^3/uL (4.0-10.0)
--- NOTE | 2020-08-25 10:20 | REPVR ---
PROCEDURE INFORMATION: Exam: CT Head Without Contrast Exam date and time: 08/25/2020 9:56 AM Age: 64 years old Clinical indication: Other: Vertigo TECHNIQUE: Imaging protocol: Computed tomography of the head without contrast. Radiation optimization: All CT scans at this facility use at least one of these dose optimization techniques: automated exposure control; mA and/or kV adjustment per patient size (includes targeted exams where dose is matched to clinical indication); or iterative reconstruction. COMPARISON: CT Head without contrast 04/07/2018 3:42 PM FINDINGS: Brain: There is no acute intracranial hemorrhage or mass effect. Mild diffuse volume loss is within the range of normal for patient age. There are small vessel ischemic changes within the periventricular and subcortical white matter, but the normal becker/white matter delineation is maintained. Cerebral ventricles: Prominence of the ventricular system is commensurate with volume loss. Paranasal sinuses: Visualized sinuses are unremarkable. No fluid levels. Mastoid air cells: Visualized mastoid air cells are well aerated. Bones/joints: Unremarkable. No acute fracture. Soft tissues: Unremarkable. IMPRESSION: No acute hemorrhage or edema. Electronically signed by: Dianne Melara On 08/25/2020 10:19:55 AM
[2020-08-25 10:47] LABS: ALBUMIN 3.5 GM/DL (3.2-5.2); ALT/SGPT 57 U/L (12-78); BILIRUBIN,TOTAL 0.5 MG/DL (0.2-1.0); BLOOD UREA NITROGEN 15 MG/DL (7-18); CALCIUM LEVEL 9.5 MG/DL (8.8-10.2); CARBON DIOXIDE LEVEL 28 MEQ/L (21-32); CHLORIDE LEVEL 108 MEQ/L (98-107); CREATININE FOR GFR 0.62 MG/DL (0.55-1.30); GLOMERULAR FILTRATION RATE > 60.0 (>45); GLUCOSE, FASTING 146 MG/DL (70-100); POTASSIUM SERUM 3.2 MEQ/L (3.5-5.1); SODIUM LEVEL 142 MEQ/L (136-145); TOTAL PROTEIN 6.6 GM/DL (6.4-8.2)
[2020-08-25] MEDS ORDERED: POTASSIUM CHLORIDE 10 MEQ SR TABLET PO ONE (11:05)
[2020-08-25] MEDS ORDERED: MECL1TAB31 PO (11:10)
[2020-08-25 11:16] VITALS: BP 122/64
== END 2020-08-25 11:24 | disposition home or self-care (01) ==
LOC: M ED 09:09 → EDBD 09:09 → M ED 11:24
DX: R42 Dizziness and giddiness (principal); I10 Essential (primary) hypertension; E78.5 Hyperlipidemia, unspecified; Z87.442 Personal history of urinary calculi; N32.9 Bladder disorder, unspecified; K57.92 Diverticulitis of intestine, part unspecified, without perforation or abscess without bleeding; Z79.82 Long term (current) use of aspirin; Z79.899 Other long term (current) drug therapy; Z88.8 Allergy status to other drugs, medicaments and biological substances

== ENCOUNTER → 2020-09-28 | Outpatient (CLI) | payer MEDICARE, OTHER ==
[~2020-09-28] MED LIST changes: +MECL1TAB31 PO
[2020-09-28 12:07] LABS: BASO # 0.1 10^3/uL (0.0-0.2); BASO % 1.1 % (0.0-1.0); EOS # 0.1 10^3/uL (0.0-0.5); EOS % 1.7 % (0.0-3.0); HEMATOCRIT 44.3 % (36.0-47.0); HEMOGLOBIN 14.7 g/dl (12.0-15.5); LYMPH # 2.3 10^3/uL (1.5-5.0); LYMPH % 35.3 % (24.0-44.0); MEAN CORPUSCULAR HGB CONC 33.2 g/dl (32.0-36.5); MEAN CORPUSCULAR VOLUME 96.3 fl (80.0-96.0); MONO # 0.4 10^3/uL (0.0-0.8); MONO % 6.5 % (2.0-8.0); NEUTROPHILS # 3.5 10^3/uL (1.5-8.5); NEUTROPHILS % 54.8 % (36.0-66.0); PLATELET COUNT, AUTOMATED 200 10^3/uL (150-450); WHITE BLOOD COUNT 6.4 10^3/uL (4.0-10.0)
[2020-09-28 12:26] LABS: HEMOGLOBIN A1c 5.7 %
[2020-09-28 12:38] LABS: ALBUMIN 3.5 GM/DL (3.2-5.2); ALT/SGPT 59 U/L (12-78); BILIRUBIN,TOTAL 0.5 MG/DL (0.2-1.0); BLOOD UREA NITROGEN 13 MG/DL (7-18); CALCIUM LEVEL 9.5 MG/DL (8.8-10.2); CARBON DIOXIDE LEVEL 31 MEQ/L (21-32); CHLORIDE LEVEL 109 MEQ/L (98-107); CHOLESTEROL LEVEL 179 MG/DL (<200); CHOLESTEROL RISK RATIO 4.365 (<5); CREATININE FOR GFR 0.72 MG/DL (0.55-1.30); FREE T4 0.89 NG/DL (0.76-1.46); GLOMERULAR FILTRATION RATE > 60.0 (>45); GLUCOSE, FASTING 136 MG/DL (70-100); HDL CHOLESTEROL 41 MG/DL (>40); LDL CHOLESTEROL 87 MG/DL (<100); NON-HDL-C 138 MG/DL; POTASSIUM SERUM 3.9 MEQ/L (3.5-5.1); SODIUM LEVEL 146 MEQ/L (136-145); TOTAL PROTEIN 6.9 GM/DL (6.4-8.2); TRIGLYCERIDES LEVEL 257 MG/DL (<150)
== END ==
LOC: M WUC 09:32
PROVIDERS: ATTEND Nurse Practitioner Family
DX: R73.03 Prediabetes (principal); Z79.899 Other long term (current) drug therapy

== ENCOUNTER → 2020-11-26 | Outpatient (CLI) | payer MEDICARE, OTHER ==
--- NOTE | 2020-11-26 14:23 | REP ---
INDICATION: PAIN COMPARISON: None TECHNIQUE: Five views FINDINGS: There is an age undetermined fracture involving the articular surface of the superior pole of the patella. There is minimal tricompartmental marginal osteophytosis and mild medial compartmental narrowing. IMPRESSION: 1. Age undetermined superior pole patellar fracture as described above. Consider MRI to search for marrow edema. 2. Chronic changes as described above. <Electronically signed by Silas Bates > 11/26/20 1400
[2020-11-26 16:19] LABS: BASO # 0.1 10^3/uL (0.0-0.2); BASO % 1.1 % (0.0-1.0); EOS # 0.1 10^3/uL (0.0-0.5); EOS % 0.9 % (0.0-3.0); HEMATOCRIT 46.2 % (36.0-47.0); HEMOGLOBIN 15.4 g/dl (12.0-15.5); LYMPH # 2.1 10^3/uL (1.5-5.0); LYMPH % 32.4 % (24.0-44.0); MEAN CORPUSCULAR HEMOGLOBIN 32.2 pg (27.0-33.0); MEAN CORPUSCULAR HGB CONC 33.3 g/dl (32.0-36.5); MEAN CORPUSCULAR VOLUME 96.5 fl (80.0-96.0); MONO # 0.5 10^3/uL (0.0-0.8); MONO % 8.3 % (2.0-8.0); NEUTROPHILS # 3.7 10^3/uL (1.5-8.5); PLATELET COUNT, AUTOMATED 200 10^3/uL (150-450); RED BLOOD COUNT 4.79 10^6/uL (4.00-5.40); WHITE BLOOD COUNT 6.5 10^3/uL (4.0-10.0)
== END ==
LOC: M WUC 12:01
PROVIDERS: ATTEND Physician Assistant
DX: S82.091A Other fracture of right patella, initial encounter for closed fracture (principal); X58.XXXA Exposure to other specified factors, initial encounter; Y92.9 Unspecified place or not applicable; Y93.9 Activity, unspecified; Y99.9 Unspecified external cause status

== ENCOUNTER 2021-01-29 05:31 | Emergency (ER) | payer MEDICARE, OTHER ==
[~2021-01-29] VITALS: Ht 149.9 cm; Wt 90.9 kg
--- OUTSIDE RECORDS SUMMARY | 2021-01-29 05:46 | CCD | Continuity of Care Document ---
Author Author Eleni HAYNES M.D. Organization Unknown Address [address] [place] [address] Phone [phone] Care Team Providers Care Aviation Safety Inspector Name Role Phone Belkis Murphy M.D. AUTM [phone] Problems Active Problems Provider Date Acquired spondylolisthesis Gonzalo Haynes M.D. Onset: 2015 Dizziness and giddiness Gonzalo Haynes M.D. Onset: 6 Cerebrovascular disease Gonzalo Haynes M.D. Onset: 6 Carpal tunnel syndrome of left wrist Gonzalo Haynes M.D. Ons et: 05/19/2015 Lesion of ulnar nerve Gonzalo Haynes M.D. Onset: 05/19/2015 Bilateral carpal tunnel syndrome Gonzalo Haynes M.D. Onset: 04/24/2019 Mild cognitive disorder Gonzalo Haynes M.D. Onset: 0 Obstructive sleep apnea syndrome Gonzalo Haynes M.D. Onset: 04/24/2019 Periodic limb movement disorder Gonzalo Haynes M.D. Onset: 0 04/01/2020 Generalized anxiety disorder Gonzalo Haynes M.D. Onset: 09/10 Attention deficit hyperactivity disorder, predominantl y inattentive type Gonzalo Haynes M.D. Onset: 09/24/2020 Social History Type Date Description Comments Sex Unknown ETOH Use Denies alcohol use Tobacco Use Start: Unknown Patient has never smoked Recreational Drug Use Never Used Drugs Allergies, Adverse Reactions, Alerts Description No Known Drug Allergies Medications Active Medications SIG Qnty Indications Ordering Provide r Date Sertraline HCL 25mg Tablets take one tablet by mouth at bedtime 90tabs Gonzalo Haynes M.D. 09/10 Donepezil HCL 10mg Tablets take one tablet by mouth every morning maximum daily dose = one tablet 90taamy Haynes M.D. 08/21/2019 Diazepam 5mg Tablets 1 tab by mouth half an hour before mri. may repeat once if needed. 2taamy Haynes M.D. 05/19/2015 Immunizations Description No Information Available Vital Signs Date Vital Result Comment 10/16/2014 1:16pm BP Systolic 135 mmHg BP Diastolic 85 mmHg Heart Rate 70 /min Respiratory Rate 16 /min Height 59 inches 4'11" Weight 212.00 lb BMI (Body Mass Index) 42.8 kg/m2 [place] Body Weight 100 lb 01/01/2014 2:02pm BP Systolic 120 mmHg BP Diastolic 70 mmHg Heart Rate 70 /min Respiratory Rate 16 /min Height 59 inches 4'11" Weight 212.00 lb BMI (Body Mass Index) 42.8 kg/m2 [place] Body Weight 100 lb Results Description No Information Available Procedures Date Code Description Status 12/09/2020 44820 Office/Outpatient Established Mo d MDM 30-39 Min Completed 09/24/2020 15794 Office/Outpatient Established Mo d MDM 30-39 Min Completed Medical Devices Description No Information Available Encounters Type Date Location Provider Dx Diagnosis Office Visit 12/09/2020 2:00p Main office - [facility] G47.33 Obstructive sleep apnea (adult) (pediatric) G47.61 Periodic limb movement disor kesha G31.84 Mild cognitive impairment, s o stated 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 12/09/2020 G47.61 Periodic limb movement disorder Gonzalo Haynes M.D. 12/09/2020 G31.84 Mild cognitive impairment, so st kathy Haynes M.D. 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 12/09/2020 R42 Dizziness and giddiness Gonzalo vidal M.D. 12/09/2020 F41.1 Generalized anxiety disorder Liya Haynes M.D. 12/09/2020 R41.840 Attention and concentration defi cit Gonzalo Haynes M.D. 09/24/2020 G47.33 Obstructive sleep apnea (adult) (pediatric) Gonzalo Haynes M.D. 09/24/2020 G47.61 Periodic limb movement disorder Gonzalo Haynes M.D. 09/24/2020 G31.84 Mild cognitive impairment, so st kathy Haynes M.D. 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 09/24/2020 R42 Dizziness and giddiness Gonzalo vidal M.D. 09/24/2020 F41.1 Generalized anxiety disorder Liya Haynes M.D. 09/24/2020 R41.840 Attention and concentration defi cit Gonzalo Haynes M.D. Plan of Treatment No Information Available Functional Status Description No Information Available Mental Status Description No Information Available Referrals Description No Information Available
--- OUTSIDE RECORDS SUMMARY | 2021-01-29 05:46 | CCD | Continuity of Care Document ---
Author Author Eleni HAYNES M.D. Organization Unknown Address [address] [place] [address] Phone [phone] Care Team Providers Care Filling Machine Set Up Mechanic Name Role Phone Belkis Murphy M.D. AUTM [phone] Problems Active Problems Provider Date Acquired spondylolisthesis [...] lb BMI (Body Mass Index) 42.8 kg/m2 [place] Body Weight 100 lb 01/01/2014 2:02pm BP Systolic 120 mmHg BP Diastolic 70 mmHg Heart Rate 70 /min Respiratory Rate 16 /min Height 59 inches 4'11" Weight 212.00 lb BMI (Body Mass Index) 42.8 kg/m2 [place] Body Weight 100 lb Results Description No Information Available Procedures Date Code Description Status 12/09/2020 75968 Office/Outpatient Established Mo d MDM 30-39 Min Completed 09/24/2020 79053 Office/Outpatient Established Mo d MDM 30-39 Min Completed Medical Devices Description No Information Available Encounters Type Date Location Provider Dx Diagnosis Office Visit 12/09/2020 2:00p Main [facility] - [facility] G47.33 Obstructive sleep apnea (adult) (pediatric) G47.61 Periodic limb movement disor kesha G31.84 Mild cognitive impairment, s o stated 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 Plan of Treatment Future Appointment(s):* 06/09/2021 2:30 pm - Gonzalo Haynes M.D. at Main office - [place] Functional Status Description No Information Available Mental Status Description No Information Available Referrals Description No Information Available
--- OUTSIDE RECORDS SUMMARY | 2021-01-29 05:46 | CCD | Continuity of Care Document ---
Author Author Eleni AMOS [place] Organization Unknown Address [address] [place] [address] [place] [address] Phone [phone] Care Team Providers Care Cloth Packer Name Role Phone Belkis Murphy MD AUTM [phone] Edenilson Awan Publi AUTM [phone] Problems Description No Information Available Social History Type Date Description Comments Sex Unknown ETOH Use Denies alcohol use Tobacco Use Start: Unknown Patient has never smoked Tobacco Use Start: Unknown The Patient Has Never Vaped Smoking Status Reviewed: 11/26/20 The Patient Has Never Vaped Allergies, Adverse Reactions, Alerts Active Allergies Criticality Reaction | Severity Comments Date Venus Unable to assess criticality hyper 12/05/2015 Medications Active Medications SIG Qnty Indications Ordering Provide r Date Prednisone 20mg Tablets 1 tab by mouth twice a day for 4 days 8tabs M25.561 Wendy Maya JR. 11/26/2020 Hydrochlorothiazide 50mg Tablets 1 by mouth every day Unknown Vitamin D (Ergocalciferol) 1.25 Ca psules qd Unknown Atenolol 50mg Tablets 1 by mouth every day Unknown Aspir-[address] ever y day Unknown Fish Oil 1200mg Capsules qd Unknown Mvi Unknown Myrbetriq 50mg Tablets ER 24HR q Unknown Biotin 300mcg Tablets qd Unknown Glucosamine Chondroitin 1500 Complex 1500Com Capsules qd Unknown Col-Rite 100mg Capsules Unknown Immunizations Description No Information Available Vital Signs Date Vital Result Comment 11/26/2020 11:25am BP Systolic 146 mmHg BP Diastolic 84 mmHg Heart Rate 63 /min Respiratory Rate 20 /min O2 % BldC Oximetry 98 % Body Temperature 94.4 F Weight 200.00 lb Height 59 inches 4'11" BMI (Body Mass Index) 40.4 kg/m2 Pain Level 4 03/19/2020 3:35pm BP Systolic 130 mmHg BP Diastolic 84 mmHg Heart Rate 62 /min Respiratory Rate 16 /min O2 % BldC Oximetry 98 % Body Temperature 96.6 F Weight 200.00 lb Height 59 inches 4'11" BMI (Body Mass Index) 40.4 kg/m2 Pain Level 3 Results Test Acquired Date Facility Test Result H/L Range Note Laboratory test finding 11/26/[address] [address] [phone] Uric Acid 5.1 mg/dL Normal 2.6-6.0 1 CBC With Differential 11/26/[address] [address] [phone] White Blood Count 6.5 10 Normal 4.0-10.0 Red Blood Count 4.79 10 Normal 4.00-5.40 Hemoglobin 15.4 g/dL Normal 12.0-15.5 Hematocrit 46.2 % Normal 36.0-47.0 Mean Corpuscular Volume 96.5 fl High 80.0-96.0 Mean Corpuscular Hemoglobin 32.2 pg Normal 27.0-33.0 Mean Corpuscular HGB Conc 33.3 g/dL Normal 32.0-36.5 Red Cell Distribution Width 13.0 % Normal 11.5-14.5 Platelet Count, Automated 200 10 Normal 150-450 Neutrophils % 57.0 % Normal 36.0-66.0 Lymph % 32.4 % Normal 24.0-44.0 [place] % 8.3 % High 2.0-8.0 Eos % 0.9 % Normal 0.0-3.0 Baso % 1.1 % High 0.0-1.0 Immature Granulocyte % 0.3 % Normal 0-3.0 Nucleated Red Blood Cell % 0.0 % Normal 0-0 Neutrophils # 3.7 10 Normal 1.5-8.5 Lymph # 2.1 10 Normal 1.5-5.0 [place] # 0.5 10 Normal 0.0-0.8 Eos # 0.1 10 Normal 0.0-0.5 Baso # 0.1 10 Normal 0.0-0.2 1 note:<nlbl:demographic_chang ed> Procedures Date Code Description Status 11/26/2020 76896 Office/Outpatient Established Lo w MDM 20-29 Min Completed Medical Devices Description No Information Available Encounters Type Date Location Provider Dx Diagnosis Office Visit 11/26/2020 9:25a Main Office HUGH Rossi M25.56 1 Pain in right knee Assessments Date Code Description Provider 11/26/2020 M25.561 Pain in right knee HUGH Russell Plan of Treatment 11/26/2020 - HUGH Rossi* M25.561 Pain in right knee* New Medication:* Prednisone 20 mg - 1 tab by mouth twice a day for 4 days * Comments:* Plain film of right knee was reviewed: degenerative changes noted, no acute fracture or dislocation.Check Uric acid. Rest, ice, elevation and compression.Prednisone as directed for inflammation.Continue to monitor and follow up PRN for any new, worsening or persistent symptoms. Patient verbalized understanding and was agreeable to plan. Functional Status Description No Information Available Mental Status Description No Information Available Referrals Description No Information Available
--- OUTSIDE RECORDS SUMMARY | 2021-01-29 05:47 | CCD | Continuity of Care Document ---
Author Author Eleni AMOS PA Organization Unknown Address [address] [place] [address] [place] [address] Phone [phone] Care Team Providers Care Cloth Inspector Name Role Phone Belkis Murphy MD AUTM [phone] Edenilson Awan Publi AUTM [phone] Problems Description No Information Available Social History [...] SIG Qnty Indications Ordering Provide r Date Hydrochlorothiazide 50mg Tablets 1 by mouth every [...] Index) 40.4 kg/m2 Pain Level 3 Results Description No Information Available Procedures Description No Information Available Medical Devices Description No Information Available Encounters Description No Information Available Assessments Description No Information Available Plan of Treatment 11/26/2020 - HUGH Rossi* All * New Labs:* Uric Acid, Ordered: 11/26/20 * CBC With Differential, Ordered: 11/26/20 Functional Status Description No Information Available Mental Status Description No Information Available Referrals Description No Information Available
--- OUTSIDE RECORDS SUMMARY | 2021-01-29 05:47 | CCD | Continuity of Care Document ---
Author Author Eleni AMOS PA Organization Unknown Address [address] [place] [address] [place] [address] Phone [phone] Care Team Providers Care Indigo Mixer Name Role Phone Belkis Murphy MD AUTM [phone] Edenilson Awan Publi AUTM [phone] Problems Description No Information Available Social History [...] 3 Results Description No Information Available Procedures Date Code Description Status 11/26/2020 37152 Office/Outpatient Established Lo w MDM 20-29 Min [...] twice a day for 4 days * New Labs:* Uric Acid, Ordered: 11/26/20 * CBC With Differential, Ordered: 11/26/20 Functional Status Description No Information Available Mental Status Description No Information Available Referrals Description No Information Available
--- OUTSIDE RECORDS SUMMARY | 2021-01-29 05:47 | CCD ---
Author Author [facility] Organization [facility] Address Unknown Phone Unavailable Care Team Providers Care Repair Technician Name Role Phone NELLA, Mitchell REESE Unavailable Unavailable LETTIERE, Mitchell REESE Unavailable Unavailable LETTIERE, Mitchell REESE Unavailable Unavailable LETTIERE, Mitchell REESE Unavailable Unavailable LETTIERE, Mitchell REESE Unavailable Unavailable LETTIERE, Mitchell REESE Unavailable Unavailable LETTIERE, Mitchell REESE Unavailable Unavailable LETTIERE, Mitchell REESE Unavailable Unavailable LETTIERE, Mitchell REESE Unavailable Unavailable LETTIERE, Mitchell REESE Unavailable Unavailable LETTIERE, Mitchell REESE Unavailable Unavailable LETTIERE, Mitchell REESE Unavailable Unavailable LETTIERE, Mitchell REESE Unavailable Unavailable LETTIERE, Mitchell REESE Unavailable Unavailable LETTIERE, Mitchell REESE Unavailable Unavailable LETTIERE, Mitchell REHMAN PA Unavailable Unavailable LETTIERE, Mitchell REHMAN PA Unavailable Unavailable LETTIERE, Mitchell REHMAN PA Unavailable Unavailable LETTIERE, Mitchell REHMAN PA Unavailable Unavailable LETTIERE, Mitchell REHMAN PA Unavailable Unavailable LETTIERE, Mitchell REHMAN PA Unavailable Unavailable LETTIERE, Mitchell REHMAN PA Unavailable Unavailable LETTIERE, Mitchell REHMAN PA Unavailable Unavailable LETTIERE, Mitchell REHMAN PA Unavailable Unavailable LETTIERE, Mitchell REHMAN PA Unavailable Unavailable LETTIERE, Mitchell REHMAN PA Unavailable Unavailable LETTIERE, Mitchell REHMAN PA Unavailable Unavailable LETTIERE, A ORI PA Unavailable Unavailable LETTIERE, A ORI PA Unavailable Unavailable LETTIERE, A ORI PA Unavailable Unavailable LETTIERE, A ORI PA Unavailable Unavailable AliGonzalo MD Unavailable Unavailable Ali, Gonzalo MONSALVE Unavailable Unavailable Ali, Gonzalo MD Unavailable Unavailable Ali, Gonzalo MD Unavailable Unavailable Ali, Gonzalo MD Unavailable Unavailable Ali, Gonzalo MD Unavailable Unavailable Ali, Gonzalo MD Unavailable Unavailable Ali, Gonzalo MD Unavailable Unavailable Ali, Gonzalo MD Unavailable Unavailable Ali, Gonzalo MD Unavailable Unavailable Ali, Gonzalo MD Unavailable Unavailable Ali, Gonzalo MD Unavailable Unavailable Ali, Gonzalo MD Unavailable Unavailable Ali, Gonzalo MD Unavailable Unavailable Ali, Gonzalo MD Unavailable Unavailable Ali, Gonzalo MD Unavailable Unavailable Ali, Gonzalo MD Unavailable Unavailable Ali, Gonzalo MD Unavailable Unavailable Ali, Gonzalo MD Unavailable Unavailable Ali, Gonzalo MD Unavailable Unavailable Ali, Gonzalo MD Unavailable Unavailable Ali, Gonzalo MD Unavailable Unavailable Ali, Gonzalo MD Unavailable Unavailable Ali, Gonzalo MD Unavailable Unavailable Ali, Gonzalo MD Unavailable Unavailable Ali, Gonzalo MD Unavailable Unavailable Ali, Gonzalo MD Unavailable Unavailable Ali, Gonzalo MD Unavailable Unavailable Ali, Gonzalo MD Unavailable Unavailable Ali, Gonzalo MD Unavailable Unavailable Ali, Gonzalo MD Unavailable Unavailable Ali, Gonzalo MD Unavailable Unavailable Ali, Gonzalo MD Unavailable Unavailable Ali, Gonzalo MD Unavailable Unavailable Ali, Gonzalo MD Unavailable Unavailable Ali, Gonzalo MD Unavailable Unavailable Ali, Gonzalo MD Unavailable Unavailable Ali, Gonzalo MD Unavailable Unavailable Ali, Gnozalo MD Unavailable Unavailable Ali, Gonzalo MD Unavailable Unavailable Ali, Gonzalo MD Unavailable Unavailable Ali, Gonzalo MD Unavailable Unavailable Ali, Gonzalo MD Unavailable Unavailable Ali, Gonzalo MD Unavailable Unavailable Ali, Gonzalo MONSALVE Unavailable Unavailable Ali, Gonzalo MD Unavailable Unavailable Ali, Gonzalo MD Unavailable Unavailable Ali, Gonzalo MD Unavailable Unavailable Ali, Gonzalo MD Unavailable Unavailable Ali, Gonzalo MD Unavailable Unavailable Ali, Gonzalo MD Unavailable Unavailable Ali, Gonzalo MD Unavailable Unavailable Pleskach, Madhuri RN EMERGENCY ROOM Unavailable Unavailable Pleskach, Madhuri RN EMERGENCY ROOM Unavailable Unavailable Pleskach, Madhuri RN EMERGENCY ROOM Unavailable Unavailable Pleskach, Madhuri RN EMERGENCY ROOM Unavailable Unavailable Pleskach, Madhuri RN EMERGENCY ROOM Unavailable Unavailable Pleskach, Madhuri RN EMERGENCY ROOM Unavailable Unavailable Pleskach, Madhuri RN EMERGENCY ROOM Unavailable Unavailable Pleskach, Madhuri RN EMERGENCY ROOM Unavailable Unavailable Pleskach, Madhuri RN EMERGENCY ROOM Unavailable Unavailable Pleskach, Madhuri RN EMERGENCY ROOM Unavailable Unavailable Pleskach, Madhuri RN EMERGENCY ROOM Unavailable Unavailable Pleskach, Madhuri RN EMERGENCY ROOM Unavailable Unavailable Pleskach, Madhuri RN EMERGENCY ROOM Unavailable Unavailable Pleskach, Madhuri RN EMERGENCY ROOM Unavailable Unavailable Pleskach, Madhuri RN EMERGENCY ROOM Unavailable Unavailable Pleskach, Madhuri RN EMERGENCY ROOM Unavailable Unavailable Pleskach, Madhuri RN EMERGENCY ROOM Unavailable Unavailable Pleskach, Madhuri RN EMERGENCY ROOM Unavailable Unavailable Pleskach, Madhuri RN EMERGENCY ROOM Unavailable Unavailable Pleskach, Madhuri RN EMERGENCY ROOM Unavailable Unavailable Pleskach, Madhuri RN EMERGENCY ROOM Unavailable Unavailable Pleskach, Madhuri RN EMERGENCY ROOM Unavailable Unavailable Pleskach, Madhuri RN EMERGENCY ROOM Unavailable Unavailable Pleskach, Madhuri RN EMERGENCY ROOM Unavailable Unavailable Pleskach, Madhuri RN EMERGENCY ROOM Unavailable Unavailable Pleskach, Madhuri RN EMERGENCY ROOM Unavailable Unavailable Pleskach, Madhuri RN EMERGENCY ROOM Unavailable Unavailable Pleskach, Madhuri RN EMERGENCY ROOM Unavailable Unavailable Pleskach, Madhuri RN EMERGENCY ROOM Unavailable Unavailable Pleskach, Madhuri RN EMERGENCY ROOM Unavailable Unavailable Pleskach, Madhuri RN EMERGENCY ROOM Unavailable Unavailable Pleskach, Madhuri RN EMERGENCY ROOM Unavailable Unavailable Pleskach, Madhuri RN EMERGENCY ROOM Unavailable Unavailable Pleskach, Madhuri RN EMERGENCY ROOM Unavailable Unavailable Pleskach, Madhuri RN EMERGENCY ROOM Unavailable Unavailable Pleskach, Madhuri RN EMERGENCY ROOM Unavailable Unavailable Pleskach, Madhuri RN EMERGENCY ROOM Unavailable Unavailable Pleskach, Madhuri RN EMERGENCY ROOM Unavailable Unavailable Pleskach, Madhuri RN EMERGENCY ROOM Unavailable Unavailable Pleskach, Mahduri RN EMERGENCY ROOM Unavailable Unavailable Pleskach, Madhuri RN EMERGENCY ROOM Unavailable Unavailable Pleskach, Madhuri RN EMERGENCY ROOM Unavailable Unavailable Pleskach, Madhuri RN EMERGENCY ROOM Unavailable Unavailable Pleskach, Madhuri RN EMERGENCY ROOM Unavailable Unavailable RING, K MILA PA Unavailable Unavailable RING, K MILA PA Unavailable Unavailable RING, K MILA PA Unavailable Unavailable RING, K MILA PA Unavailable Unavailable RING, K MILA PA Unavailable Unavailable RING, K MILA PA Unavailable Unavailable RING, K MILA PA Unavailable Unavailable RING, K MILA PA Unavailable Unavailable RING, K MILA PA Unavailable Unavailable RING, K MILA PA Unavailable Unavailable RING, K MILA PA Unavailable Unavailable RING, K MILA PA Unavailable Unavailable RING, K MILA PA Unavailable Unavailable RING, K MILA PA Unavailable Unavailable RING, K MILA PA Unavailable Unavailable RING, K MILA PA Unavailable Unavailable RING, K MILA PA Unavailable Unavailable RING, K MILA PA Unavailable Unavailable RING, K MILA PA Unavailable Unavailable RING Jerry REESE Unavailable Unavailable RING K MILA REESE Unavailable Unavailable Re-disclosure Warning The records that you are about to access may contain information from federally-assisted alcohol or drug abuse programs. If such information is present, then the following federally mandated warning applies: This information has been disclosed to you from records protected by federal confidentiality rules (42 CFR part 2). The federal rules prohibit you from making any further disclosure of this information unless further disclosure is expressly permitted by the written consent of the person to whom it pertains or as otherwise permitted by 42 CFR part 2. A general authorization for the release of medical or other information is NOT sufficient for this purpose. The Federal rules restrict any use of the information to criminally investigate or prosecute any alcohol or drug abuse patient.The records that you are about to access may contain highly sensitive health information, the redisclosure of which is protected by Article 27-F of the [facility] Public Health law. If you continue you may have access to information: Regarding HIV / AIDS; Provided by facilities licensed or operated by the [facility] Office of Mental Health; or Provided by the [facility] Office for People With Developmental Disabilities. If such information is present, then the following [facility] mandated warning applies: This information has been disclosed to you from confidential records which are protected by state law. State law prohibits you from making any further disclosure of this information without the specific written consent of the person to whom it pertains, or as otherwise permitted by law. Any unauthorized further disclosure in violation of state law may result in a fine or nursing home sentence or both. A general authorization for the release of medical or other information is NOT sufficient authorization for further disc losure. Family History Family Member Name Family Member Gender Family Member Status Date o f Status Description Data Source(s) Unknown Unknown Problem [facility] ([facility] Encounters Encounter Providers Location Date Indications Data Source(s ) Outpatient Attender: Gonzalo Haynes MD Main office - [place] 12/09/2020 02:00:00 PM EDT [facility] ([facility], ) Outpatient Attender: MILA [facility] 11/26/2020 09:25:00 AM EDT [facility] ([facility] Outpatient Attender: Gonzalo Haynes MD Main office - [place] 09/24/2020 11:45:00 AM EDT [facility] ([facility] Outpatient Attender: Madhuri Landis [facility] Main Office 05/21/2020 0 8:30:00 AM EST [facility] ([facility] Outpatient Attender: Gonzalo Haynes MD Main office - [place] 04/01/2020 11:45:00 AM EST [facility] ([facility]) Outpatient Attender: ORI Reyna satya 03/19/2020 02:35:00 PM EST [facility] ([facility] [place] [facility]) [place] [address] [address] 02/24/2020 12:00:00 AM EST eCW1 ([facility]) Outpatient Attender: Madhuri Landis [facility] Main Office 12/12/2019 0 2:30:00 PM EDT [facility] ([facility] Immunizations Vaccine Date Status Description Data Source(s) Moderna Sars-(Covid-19) vaccine, mRNA, LNP-S, PF, 100 mcg/ 0.5 mL 05/18/2020 09:07:00 AM EST completed [facility] ([facility] COVID-19 VACCINE Moderna 05/18/2020 12:00:00 AM EST completed [facility] Vaccine Series Complete: YESThis Data wa s Submitted to [facility] Via [facility]. Moderna Sars-(Covid-19) vaccine, mRNA, LNP-S, PF, 100 mcg/ 0.5 mL 04/20/2020 09:07:00 AM EST completed [facility] ([facility] COVID-19 VACCINE Moderna 04/20/2020 12:00:00 AM EST completed [facility] Vaccine Series Complete: NOThis Data was Submitted to [facility]. Medications Medication Brand Name Start Date Product Form Dose Route Admi nistrative Instructions Pharmacy Instructions Status Indications Reaction Description Data Source(s) Prednisone 20 MG Oral Tablet Prednisone 11/26/2020 12:00:00 AM EDT ORAL active [facility] Sertraline 25 MG Oral Tablet Sertraline HCL 09/24/2020 12:00:00 AM EDT ORAL active [facility] ([facility]) Mupirocin 0.02 MG/MG Topical Ointment Mupirocin 12/12/2019 12:00:00 AM EDT active [facility] ([facility] Insurance Providers Payer name Policy type / Coverage type Policy ID Covered libertarian ID Covered libertarian's relationship to henderson Policy [place] Plan Information POMCO [id number] HU2 [id number] POMCO [id number] HU2 [id number] [facility] INSURANCE [id number] SP [id number] POMCO [id number] HU2 [id number] POMCO [id number] HU2 [id number] POMCO [id number] HU2 [id number] Pom[employer] (pr) Medigap Part B Family Dependent Ghi/Emblem HLTH (pr) Medigap Part B [id number] Self POMCO [id number] SP [id number] Pom[employer] (pr) Commercial [id number] Self POMCO [id number] SP [id number] Umr (pr) Commercial [id number] Self [id number] Umr (pr) Medigap Part B [id number] .[id number] .[id number] Family Dependent [id number] Umr Commercial [id number] Self [id number] UMR [facility] [id number] SP [id number] ANSI-Commercial [id number] ANSI-Commercial [id number] ANSI-Commercial [id number] ANSI-Commercial [id number] Umr Medigap Part B [id number] Family Dependent [id number] Umr Commercial [id number] 873 Self [id number] POMCO PPO O [id number] S [id number] POMCO PPO O [id number] S [id number] Pomco Medigap Part B [id number] ..[id number] .[id number] Family Dependent [id number] [employer] Commercial [id number] .[id number] 873 Self [id number] Pomco Medigap Part B [id number] .[id number] .[id number] Family Dependent [id number] [employer] Commercial [id number] .[id number] 873 Self [id number] [employer] Medigap Part B [id number] .[id number] .[id number] Family Dependent [id number] [employer] Commercial [id number] Self [id number] [employer] Medigap Part B [id number] .[id number] Family Dependent [id number] [employer] Commercial [id number] Self [id number] POMCO [id number] 2 [id number] POMCO [id number] SP [id number] [employer] Medigap Part B [id number] ..[id number] .[id number] Family Dependent [id number] [employer] Commercial [id number] ..[id number] 873 Self [id number] [employer] Medigap Part B [id number] .0.1.748677.3.227.99 .6619.9930.0 Family Dependent [id number] [employer] Commercial [id number] ..[id number] Self [id number] POMCO [id number] 2 [id number] POMCO [id number] SP [id number] [employer] Medigap Part B [id number] .[id number] .[id number] Family Dependent [id number] [employer] Commercial [id number] ..[id number] 873 Self [id number] [employer] Medigap Part B [id number] .0.1.656147.3.227.99 .1767.75900.0 Family Dependent [id number] [employer] Commercial [id number] 2..[id number] Self [id number] [employer] Medigap Part B [id number] .[id number] Family Dependent [id number] [employer] Commercial [id number] 2..[id number] 873 Self [id number] POMCO [id number] 2 [id number] POMCO [id number] SP [id number] Pom[employer] Medigap Part B [id number] Family Dependent [employer] Commercial [id number] Self POMCO [id number] 2 [id number] Pom[employer] Medigap Part B [id number] Family Dependent [employer] Commercial [id number] Self MEDICARE [id number] SP [id number] Ghi Medigap Part B [id number] Self Pomco Medigap Part B [id number] Family Dependent [employer] (HMO) [id number] Se lf Pomco Medigap Part B [id number] Family Dependent Pom[employer] Commercial [id number] Self UMR [facility] CARE [id number] SP [id number] UMR [facility] [id number] HU2 [id number] UMR O [id number] S [id number] MEDICARE C [id number] S [id number] ANSI-Medicare Part B [id number] ANSI-Commercial [id number] ANSI-Commercial [id number] ANSI-Commercial [id number] ANSI-Commercial [id number] [facility] [id number] HU2 [id number] [facility] [id number] HU2 [id number] [facility] Part B [id number] Family Dependent [id number] r Commercial [id number] 3 Self [id number] [facility] Part B [id number] Family Dependent [id number] Problems, Conditions, and Diagnoses Code Display Name Description Problem Type Effective Dates Data Source(s) 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, 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, predominantl y inattentive type Problem 09/24/2020 12:00:00 AM EDT [facility] ([facility] ) F41.1 Generalized anxiety disorder Generalized anxiety disor kesha Problem 09/24/2020 12:00:00 AM EDT [facility] ([facility] ) [id number] Obstructive sleep apnea syndrome Obstructive sle ep apnea syndrome Problem 05/21/2020 12:00:00 AM EST [facility] ([facility] G47.61 Periodic limb movement disorder Periodic limb movement disorder Problem 04/01/2020 12:00:00 AM EST [facility] ([facility], ) Surgeries/Procedures Procedure Description Date Indications Data Source(s) OFFICE OUTPATIENT VISIT 25 MINUTES 12/09/2020 12:00:00 AM EDT [facility] ([facility] ) OFFICE OUTPATIENT VISIT 15 MINUTES 11/26/2020 12:00:00 AM EDT MED[facility] ([facility], [facility]) OFFICE OUTPATIENT VISIT 25 MINUTES 09/24/2020 12:00:00 AM EDT [facility] ([facility], ) OFFICE OUTPATIENT VISIT 25 MINUTES 04/01/2020 12:00:00 AM EST [facility] ([facility], ) PHYSICIAN TELEPHONE EVALUATION 11-20 MIN 04/01/2020 12 :00:00 AM EST [facility] ([facility] ) Polysomnography Sleep Staging 4+ Parameters W/Cpap 01/22/2020 12:00:00 AM EST [facility] ([facility], ) Polysomnography Sleep Staging 4+ Parameters 12/10/2019 12:00:00 AM EDT [facility] ([facility] ) Results ID Date Data Source [id number] 11/26/2020 12:02:00 PM EDT [facility] ([facility]) Name Value Range Interpretation Code Description Data Torri rce(s) Supporting Document(s) White Blood Count 6.5 10 4.0-10.0 [facility] ([facility], [facility]) Red Blood Count 4.79 10 4.00-5.40 MED[facility] ([facility], [facility]) Hemoglobin 15.4 g/dL 12.0-15.5 MED[facility] ([facility], [facility]) Hematocrit 46.2 % 36.0-47.0 MED[facility] ([facility], [facility]) Mean Corpuscular Volume 96.5 fl 80.0-96.0 M EDENT ([facility], [facility]) Mean Corpuscular HGB Conc 33.3 g/dL 32.0-36.5 [facility] ([facility], [facility]) Mean Corpuscular Hemoglobin 32.2 pg 27.0-33.0 [facility] ([facility], [facility]) Red Cell Distribution Width 13.0 % 11.5-14.5 [facility] ([facility], [facility]) Platelet Count, Automated 200 10 150-450 MED[facility] ([facility], [facility]) Neutrophils % 57.0 % 36.0-66.0 MED[facility] ([facility], [facility]) Lymph % 32.4 % 24.0-44.0 MED[facility] ([facility], [facility]) [place] % 8.3 % 2.0-8.0 MED[facility] ([facility], [facility]) Eos % 0.9 % 0.0-3.0 MED[facility] ([facility], [facility]) Baso % 1.1 % 0.0-1.0 MED[facility] ([facility], [facility]) Immature Granulocyte % 0.3 % 0-3.0 MED[facility] ([facility], [facility]) Nucleated Red Blood Cell % 0.0 % 0-0 MED ENT ([facility], [facility]) Neutrophils # 3.7 10 1.5-8.5 MED[facility] ([facility], [facility]) Lymph # 2.1 10 1.5-5.0 MED[facility] ([facility], [facility]) [place] # 0.5 10 0.0-0.8 MED[facility] ([facility], [facility]) Eos # 0.1 10 0.0-0.5 MED[facility] ([facility], [facility]) Baso # 0.1 10 0.0-0.2 [facility] ([facility], [facility]) ID Date Data Source [id number] 11/26/2020 12:02:00 PM EDT [facility] ([facility]) Name Value Range Interpretation Code Description Data Torri rce(s) Supporting Document(s) Urate [Mass/volume] in Serum or Plasma 5.1 mg/dL 2.6-6.0 [facility] ([facility]) <content>note:<nlbl:demographic_changed> </content>
<content></content> ID Date Data Source [id number] 03/19/2020 12:00:00 AM EST [facility] Name Value Range Interpretation Code Description Data Torir rce(s) Supporting Document(s) SARS-CoV2 Rapid Antigen Positive [facility] This lab was reported by [facility]. ID Date Data Source [id number] 03/19/2020 12:00:00 AM EST [facility] Name Value Range Interpretation Code Description Data Torri rce(s) Supporting Document(s) SARS coronavirus 2 Ag Negative [facility] This lab was ordered by [facility] and reported by [facility]. Procedure Social History Code Duration Value Status Description Data Source(s ) Smoking 03/19/2020 12:00:00 AM EST Patient has never smoked co mpleted Patient has never smoked [facility] ([facility]) Vital Signs ID Date Data Source UNK Name Value Range Interpretation Code Description Data Source(s) Body height 59 [in_i] 59 [in_i] [facility] ([facility]) 4'11" Heart rate 63 /min 63 /min [facility] ([facility]) Respiratory rate 20 /min 20 /min [facility] ( [facility]) Body mass index (BMI) [Ratio] 40.4 kg/m2 40.4 k g/m2 [facility] Oxygen saturation in Arterial blood by Pulse oximetry 98 % 98 % [facility] ([facility]) Diastolic blood pressure 84 mm[Hg] 84 mm[Hg] [facility] ([facility]) Body temperature 94.4 [degF] 94.4 [degF] [facility] ([facility]) Body weight 200.00 [lb_av] 200.00 [lb_av] MEDEN T ([facility]) Systolic blood pressure 146 mm[Hg] 146 mm[Hg] M EDENT ([facility]) Systolic blood pressure 142 mm[Hg] 142 mm[Hg] M [facility] ([facility] Diastolic blood pressure 82 mm[Hg] 82 mm[Hg] [facility] ([facility] Heart rate 64 /min 64 /min [facility] ([facility] Body temperature 96.9 [degF] 96.9 [degF] [facility] ([facility] Respiratory rate 16 /min 16 /min [facility] ( [facility] Body height 59 [in_i] 59 [in_i] [facility] ([facility] 4'" Body weight 207.38 [lb_av] 207.38 [lb_av] MEDEN T ([facility] Oxygen saturation in Arterial blood by Pulse oximetry 98 % 98 % [facility] ([facility] [place] body weight 100 [lb_av] 100 [lb_av] [facility] ([facility] Body mass index (BMI) [Ratio] 41.9 kg/m2 41.9 k g/m2 [facility] ([facility] Systolic blood pressure 130 mm[Hg] 130 mm[Hg] M [facility] ([facility], [facility]) Heart rate 62 /min 62 /min [facility] ([facility], [facility]) [facility]piratory rate 16 /min 16 /min [facility] ( [facility], [facility]) Body height 59 [in_i] 59 [in_i] [facility] ([facility]) " Body mass index (BMI) [Ratio] 40.4 kg/m2 40.4 k g/m2 [facility] ([facility]) Diastolic blood pressure 84 mm[Hg] 84 mm[Hg] [facility] ([facility]) Oxygen saturation in Arterial blood by Pulse oximetry 98 % 98 % [facility] ([facility], [facility]) Body temperature 96.6 [degF] 96.6 [degF] [facility] ([facility], [facility]) Body weight 200.00 [lb_av] 200.00 [lb_av] [facility] T ([facility], [facility]) Systolic blood pressure 153 mm[Hg] 153 mm[Hg] [facility] ([facility], ) Diastolic blood pressure 87 mm[Hg] 87 mm[Hg] [facility] ([facility], ) Body height 59 [in_i] 59 [in_i] [facility] 4'11" Body weight 206.00 [lb_av] 206.00 [lb_av] [facility] T ([facility]) Body mass index (BMI) [Ratio] 41.6 kg/m2 41.6 k g/m2 [facility] ([facility]) [place] body weight 100 [lb_av] 100 [lb_av] [facility] Body weight 93.442 kg 93.442 kg [facility] ([facility]) Respiratory rate 16 /min 16 /min [facility] ( [facility] Heart rate 56 /min 56 /min [facility] ([facility] Systolic blood pressure 108 mm[Hg] 108 mm[Hg] [facility] ([facility] Diastolic blood pressure 64 mm[Hg] 64 mm[Hg] [facility] ([facility] Body weight 207.00 [lb_av] 207.00 [lb_av] [facility] ([facility]
--- NOTE | 2021-01-29 07:23 | REPVR ---
PROCEDURE INFORMATION: Exam: XR Left Ribs with PA Chest Exam date and time: 01/29/2021 6:57 AM Age: 65 years old Clinical indication: Other: L rib pain TECHNIQUE: Imaging protocol: XR Left ribs with PA chest. Views: 3 views COMPARISON: CR Abdomen,Flat Upright,PA CHEST 12/10/2018 4:07 PM FINDINGS: Tubes, catheters and devices: Surgical clip again overlies the right upper quadrant. Lungs: Unremarkable. No consolidation. Pleural spaces: Unremarkable. No pleural effusion. No pneumothorax. Heart/Mediastinum: The cardiomediastinal silhouette is fairly stable in appearance. Bones/joints: Degenerative changes again involve the spine. No acute fracture of the visualized skeleton, including the left ribs, is identified. No focal lytic or blastic lesion is identified. IMPRESSION: 1. No evidence for acute pulmonary disease. 2. No left rib fracture or lesion identified. Electronically signed by: Jerry Day On 01/29/2021 07:23:10 AM
[2021-01-29 08:14] VITALS: BP 160/72
--- NOTE | 2021-01-29 08:21 | REP ---
INDICATION: L anterior/lower rib pain COMPARISON: None TECHNIQUE: Axial noncontrast images from the thoracic inlet to the upper abdomen with coronal and sagittal reformations. This CT examination was performed using the following dose reduction techniques: Automated exposure control, adjustment of mA and/or kv according to the patient's size, and use of iterative reconstruction technique. FINDINGS: The bilateral lung villegas are well aerated and relatively clear. Trace right basilar atelectasis is suggested. No consolidation, suspicious nodule or mass. No effusion. No pneumothorax. Tracheobronchial tree is patent. Mediastinum demonstrates relatively age-appropriate thoracic aorta, pulmonary vasculature and heart/pericardium. No evidence for aortic aneurysm or cardiomegaly. No pericardial effusion. No axillary, hilar, or mediastinal adenopathy. Musculoskeletal structures demonstrate age-related changes without acute process. Limited upper abdomen demonstrates normal bilateral adrenal glands and 2.5 mm nonobstructing left renal calculus. IMPRESSION: 1. Trace, miniscule right basilar atelectasis. 2. No further acute mediastinal or pleuroparenchymal process appreciated. <Electronically signed by Jovanni Sanches > 01/29/21 [id number]
--- OUTSIDE RECORDS SUMMARY | 2021-01-29 08:44 | CCD ---
Author Author [facility] Organization [facility] Address Unknown Phone Unavailable Care Team Providers Care Axminster Weaver Name Role Phone NELLA, Mitchell REESE Unavailable [...] Ali, Gonzalo MD Unavailable Unavailable Pleskach, Madhuri QUALITY ASSURANCE ADVISOR Unavailable Unavailable Pleskach, Madhuri QUALITY ASSURANCE ADVISOR Unavailable Unavailable Pleskach, Madhuri QUALITY ASSURANCE ADVISOR Unavailable Unavailable Pleskach, Madhuri QUALITY ASSURANCE ADVISOR Unavailable Unavailable Pleskach, Madhuri QUALITY ASSURANCE ADVISOR Unavailable Unavailable Pleskach, Madhuri QUALITY ASSURANCE ADVISOR Unavailable Unavailable Pleskach, Madhuri QUALITY ASSURANCE ADVISOR Unavailable Unavailable Pleskach, Madhuri QUALITY ASSURANCE ADVISOR Unavailable Unavailable Pleskach, Madhuri QUALITY ASSURANCE ADVISOR Unavailable Unavailable Pleskach, Madhuri QUALITY ASSURANCE ADVISOR Unavailable Unavailable Pleskach, Madhuri QUALITY ASSURANCE ADVISOR Unavailable Unavailable Pleskach, Madhuri QUALITY ASSURANCE ADVISOR Unavailable Unavailable Pleskach, Madhuri QUALITY ASSURANCE ADVISOR Unavailable Unavailable Pleskach, Madhuri QUALITY ASSURANCE ADVISOR Unavailable Unavailable Pleskach, Madhuri QUALITY ASSURANCE ADVISOR Unavailable Unavailable Pleskach, Madhuri QUALITY ASSURANCE ADVISOR Unavailable Unavailable Pleskach, Madhuri QUALITY ASSURANCE ADVISOR Unavailable Unavailable Pleskach, Madhuri QUALITY ASSURANCE ADVISOR Unavailable Unavailable Pleskach, Madhuri QUALITY ASSURANCE ADVISOR Unavailable Unavailable Pleskach, Madhuri QUALITY ASSURANCE ADVISOR Unavailable Unavailable Pleskach, Madhuri QUALITY ASSURANCE ADVISOR Unavailable Unavailable Pleskach, Madhuri QUALITY ASSURANCE ADVISOR Unavailable Unavailable Pleskach, Madhuri QUALITY ASSURANCE ADVISOR Unavailable Unavailable Pleskach, Madhuri QUALITY ASSURANCE ADVISOR Unavailable Unavailable Pleskach, Madhuri QUALITY ASSURANCE ADVISOR Unavailable Unavailable Pleskach, Madhuri QUALITY ASSURANCE ADVISOR Unavailable Unavailable Pleskach, Madhuri QUALITY ASSURANCE ADVISOR Unavailable Unavailable Pleskach, Madhuri QUALITY ASSURANCE ADVISOR Unavailable Unavailable Pleskach, Madhuri QUALITY ASSURANCE ADVISOR Unavailable Unavailable Pleskach, Madhuri QUALITY ASSURANCE ADVISOR Unavailable Unavailable Pleskach, Madhuri QUALITY ASSURANCE ADVISOR Unavailable Unavailable Pleskach, Madhuri QUALITY ASSURANCE ADVISOR Unavailable Unavailable Pleskach, Madhuri QUALITY ASSURANCE ADVISOR Unavailable Unavailable Pleskach, Madhuri QUALITY ASSURANCE ADVISOR Unavailable Unavailable Pleskach, Madhuri QUALITY ASSURANCE ADVISOR Unavailable Unavailable Pleskach, Madhuri QUALITY ASSURANCE ADVISOR Unavailable Unavailable Pleskach, Madhuri QUALITY ASSURANCE ADVISOR Unavailable Unavailable Pleskach, Madhuri QUALITY ASSURANCE ADVISOR Unavailable Unavailable Pleskach, Madhuri QUALITY ASSURANCE ADVISOR Unavailable Unavailable Pleskach, Madhuri QUALITY ASSURANCE ADVISOR Unavailable Unavailable Pleskach, Madhuri QUALITY ASSURANCE ADVISOR Unavailable Unavailable Pleskach, Madhuri QUALITY ASSURANCE ADVISOR Unavailable Unavailable Pleskach, Madhuri QUALITY ASSURANCE ADVISOR Unavailable Unavailable Pleskach, Madhuri QUALITY ASSURANCE ADVISOR Unavailable Unavailable RING, K MILA PA Unavailable [...] is protected by Article 27-F of the [facility] Public Health law. If you continue you may have access to information: Regarding HIV / AIDS; Provided by facilities licensed or operated by the [facility] Office of Mental Health; or Provided by the [facility] Office for People With Developmental Disabilities. If such information is present, then the following [facility] mandated warning applies: This information has [...] law may result in a fine or group home sentence or both. A general authorization [...] Attender: Gonzalo Haynes MD Main office - [place] 12/09/2020 02:00:00 PM EDT MED[facility] ([facility], ) Outpatient Attender: MILA [facility] 11/26/2020 09:25:00 AM EDT [facility] ([facility]) Outpatient Attender: Gonzalo Haynes MD Main office - [place] 09/24/2020 11:45:00 AM EDT [facility] ([facility] Outpatient Attender: Madhuri Landis [facility] Main Office 05/21/2020 0 8:30:00 AM EST MEDENT ([facility] Outpatient Attender: Gonzalo Haynes MD Main office - [place] 04/01/2020 11:45:00 AM EST MED[facility] ([facility]) Outpatient Attender: ORI Reyna satya 03/19/2020 02:35:00 PM EST MEDENT ([facility]) Unknown [address] [address] 02/24/2020 12:00:00 AM EST eCW1 ([facility]) Outpatient Attender: Madhuri Landis [facility] Main Office 12/12/2019 0 2:30:00 PM EDT MEDENT ([facility] Immunizations Vaccine Date Status Description Data Source(s) Moderna Sars-(Covid-19) vaccine, mRNA, LNP-S, PF, 100 mcg/ 0.5 mL 05/18/2020 09:07:00 AM EST completed MED[facility] ([facility] COVID-19 VACCINE Moderna 05/18/2020 12:00:00 AM EST completed [facility] Vaccine Series Complete: YESThis Data wa s Submitted to [facility] Via [employer]. Moderna Sars-(Covid-19) vaccine, mRNA, LNP-S, PF, 100 mcg/ 0.5 mL 04/20/2020 09:07:00 AM EST completed [facility] ([facility] COVID-19 VACCINE Moderna 04/20/2020 12:00:00 AM EST completed [facility] Vaccine Series Complete: NOThis Data was Submitted to [facility] Via [employer]. Medications Medication Brand Name Start Date Product Form Dose Route Admi nistrative Instructions Pharmacy Instructions Status Indications Reaction Description Data Source(s) Prednisone 20 MG Oral Tablet Prednisone 11/26/2020 12:00:00 AM EDT ORAL active MEDENT ([facility]) Sertraline 25 MG Oral Tablet Sertraline HCL 09/24/2020 12:00:00 AM EDT ORAL active MEDENT ([facility]) Mupirocin 0.02 MG/MG Topical Ointment Mupirocin 12/12/2019 12:00:00 AM EDT active MEDENT ([facility] Insurance Providers Payer name Policy type / Coverage type Policy ID Covered green party ID Covered green party's relationship to henderson Policy [place] Plan Information POMCO [id number] HU2 [id number] POMCO [id number] HU2 [id number] [facility] INSURANCE [id number] SP [id number] POMCO [id number] HU2 [id number] POMCO [id number] HU2 [id number] POMCO [id number] HU2 [id number] [employer] (pr) Medigap Part B Family Dependent Ghi/Emblem HLTH (pr) Medigap Part B [id number] Self POMCO [id number] SP [id number] [employer] (pr) Commercial [id number] Self POMCO [id number] SP [id number] Umr (pr) Commercial [id number] Self [id number] Umr (pr) Medigap Part B [id number] .[id number] .[id number] Family Dependent [id number] Umr Commercial [id number] 873 Self [id number] UMR [facility] [id number] SP [id number] ANSI-Commercial [id number] ANSI-Commercial [id number] ANSI-Commercial [id number] ANSI-Commercial [id number] Umr Medigap Part B [id number] ..[id number] .[id number] Family Dependent [id number] Umr Commercial [id number] 873 Self [id number] POMCO PPO O [id number] S [id number] POMCO PPO O [id number] S [id number] Pom[employer] Medigap Part B [id number] ..[id number] .[id number] Family Dependent [id number] [employer] Commercial [id number] .[id number] 873 Self [id number] [employer] Medigap Part B [id number] .1.983380.3.227.99 .[id number] Family Dependent [id number] [employer] Commercial [id number] .[id number] 873 Self [id number] [employer] Medigap Part B [id number] .1.654810.3.227.99 .1767.31623.0 Family Dependent [id number] [employer] Commercial [id number] Self [id number] [employer] Medigap Part B [id number] 2.0.1.184347.3.227.99 .1767.99655.0 Family Dependent [id number] [facility] Commercial [id number] Self [id number] POMCO [id number] 2 [id number] POMCO [id number] SP [id number] [employer] Medigap Part B [id number] ..1.455039.3.227.99 .2809.72312.3873 Family Dependent [id number] [facility] Commercial [id number] ..1.081514.3.227.99.2809.25081.3 873 Self [id number] [employer] Medigap Part B [id number] .0.1.292657.3.227.99 .6619.9930.0 Family Dependent [id number] [employer] Commercial [id number] ..[id number]0.0 Self [id number] POMCO [id number] 2 [id number] POMCO [id number] SP [id number] [facility] Medigap Part B [id number] .0.1.909397.3.227.99 .[id number] Family Dependent [id number] [employer] Commercial [id number] ..1.114569.3.227.99.2809.18945.3 873 Self [id number] [employer] Medigap Part B [id number] .0.1.568658.3.227.99 .1767.22266.0 Family Dependent [id number] [employer] Commercial [id number] 2..1.215149.3.227.99.1767.37256.0 Self [id number] [employer] Medigap Part B [id number] 2.840.1.836919.3.227.99 .[id number] Family Dependent [id number] [employer] Commercial [id number] 2..[id number]30.3 873 Self [id number] POMCO [id number] 2 [id number] POMCO [id number] SP [id number] [employer] Medigap Part B [id number] Family Dependent [employer] Commercial [id number] Self POMCO [id number] 2 [id number] Pom[employer] Medigap Part B [id number] Family Dependent [facility] Commercial [id number] Self MEDICARE [id number] SP [id number] Ghi Medigap Part B [id number] Self [employer] Medigap Part B [id number] Family Dependent [facility] [employer] (HMO) [id number] Se [id number] [employer] Medigap Part B [id number] Family Dependent [employer] Commercial [id number] Self UMR [facility] [id number] SP [id number] UMR [facility] [id number] HU2 [id number] UMR O [id number] S [id number] MEDICARE C [id number] S [id number] ANSI-Medicare Part B [id number] ANSI-Commercial [id number] ANSI-Commercial [id number] ANSI-Commercial [id number] ANSI-Commercial [id number] [facility] [id number] HU2 [id number] [facility] [id number] HU2 [id number] [facility] Part B [id number] Family Dependent [id number] r Commercial [id number] 3 Self [id number] [facility] Part B [id number] .[id number] Family Dependent [id number] Problems, Conditions, and Diagnoses Code Display Name Description Problem Type Effective Dates Data Source(s) 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, 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, predominantl y inattentive type Problem 09/24/2020 12:00:00 AM EDT MED[facility] ([facility] F41.1 Generalized anxiety disorder Generalized anxiety disor kesha Problem 09/24/2020 12:00:00 AM EDT MED[facility] ([facility] ) [id number] Obstructive sleep apnea syndrome Obstructive sle ep apnea syndrome Problem 05/21/2020 12:00:00 AM EST [facility] ([facility] G47.61 Periodic limb movement disorder Periodic limb movement disorder Problem 04/01/2020 12:00:00 AM EST MED[facility] ([facility] ) Surgeries/Procedures Procedure Description Date Indications Data Source(s) OFFICE OUTPATIENT VISIT 25 MINUTES 12/09/2020 12:00:00 AM EDT MED[facility] ([facility] ) OFFICE OUTPATIENT VISIT 15 MINUTES 11/26/2020 12:00:00 AM EDT MEDENT ([facility], [facility]) OFFICE OUTPATIENT VISIT 25 MINUTES 09/24/2020 12:00:00 AM EDT MED[facility] ([facility] ) OFFICE OUTPATIENT VISIT 25 MINUTES 04/01/2020 12:00:00 AM EST MED[facility] ([facility] ) PHYSICIAN TELEPHONE EVALUATION 11-20 MIN 04/01/2020 12 :00:00 AM EST MED[facility] ([facility] ) Polysomnography Sleep Staging 4+ Parameters W/Cpap 01/22/2020 12:00:00 AM EST MED[facility] ([facility] ) Polysomnography Sleep Staging 4+ Parameters 12/10/2019 12:00:00 AM EDT MED[facility] ([facility] ) Results ID Date Data Source [id number] 11/26/2020 12:02:00 PM EDT MEDENT ([facility], [facility]) Name Value Range Interpretation Code Description Data Torri rce(s) Supporting Document(s) White Blood Count 6.5 10 4.0-10.0 MEDENT ([facility], [facility]) Red Blood Count 4.79 10 4.00-5.40 MED[facility] ([facility], [facility]) Hemoglobin 15.4 g/dL 12.0-15.5 MEDENT ([facility], [facility]) Hematocrit 46.2 % 36.0-47.0 MEDENT ([facility], [facility]) Mean Corpuscular Volume 96.5 fl 80.0-96.0 M EDENT ([facility], [facility]) Mean Corpuscular HGB Conc 33.3 g/dL 32.0-36.5 MED[facility] ([facility], [facility]) Mean Corpuscular Hemoglobin 32.2 pg 27.0-33.0 [facility] ([facility], [facility]) Red Cell Distribution Width 13.0 % 11.5-14.5 MED[facility] ([facility], [facility]) Platelet Count, Automated 200 10 150-450 MED[facility] ([facility], [facility]) Neutrophils % 57.0 % 36.0-66.0 MEDENT ([facility], [facility]) Lymph % 32.4 % 24.0-44.0 MEDENT ([facility]Note [facility], [facility]) [place] % 8.3 % 2.0-8.0 MEDENT ([facility], [facility]) Eos % 0.9 % 0.0-3.0 MED[facility] ([facility], [facility]) Baso % 1.1 % 0.0-1.0 MED[facility] ([facility], [facility]) Immature Granulocyte % 0.3 % 0-3.0 MED[facility] ([facility], [facility]) Nucleated Red Blood Cell % 0.0 % 0-0 MED ENT ([facility], [facility]) Neutrophils # 3.7 10 1.5-8.5 MEDENT ([facility], [facility]) Lymph # 2.1 10 1.5-5.0 MEDENT ([facility], [facility]) [place] # 0.5 10 0.0-0.8 MED[facility] ([facility], [facility]) Eos # 0.1 10 0.0-0.5 MED[facility] ([facility], [facility]) Baso # 0.1 10 0.0-0.2 MED[facility] ([facility], [facility]) ID Date Data Source [id number] 11/26/2020 12:02:00 PM EDT MEDENT ([facility]) Name Value Range Interpretation Code Description Data Torri rce(s) Supporting Document(s) Urate [Mass/volume] in Serum or Plasma 5.1 mg/dL 2.6-6.0 MEDENT ([facility]) <content>note:<nlbl:demographic_changed> </content>
<content></content> ID Date Data Source [id number] 03/19/2020 12:00:00 AM EST [facility] Name Value Range Interpretation Code Description Data Torri rce(s) Supporting Document(s) SARS-CoV2 Rapid Antigen Positive [facility] This lab was reported by [facility]. ID Date Data Source [id number] 03/19/2020 12:00:00 AM EST [facility] Name Value Range Interpretation Code Description Data Torri rce(s) Supporting Document(s) SARS coronavirus 2 [facility] This lab was ordered by [facility] and reported by [facility]. Procedure Social History Code Duration Value Status Description Data Source(s ) Smoking 03/19/2020 12:00:00 AM EST Patient has never smoked co mpleted Patient has never smoked MED[facility] ([facility]) Vital Signs ID Date Data Source UNK Name Value Range Interpretation Code Description Data Source(s) Heart rate 63 /min 63 /min MED[facility] ([facility]) Respiratory rate 20 /min 20 /min MED[facility] ( [facility]) Oxygen saturation in Arterial blood by Pulse oximetry 98 % 98 % MED[facility] ([facility]) Body height 59 [in_i] 59 [in_i] MED[facility] ([facility]) 4'11" Body mass index (BMI) [Ratio] 40.4 kg/m2 40.4 k g/m2 MED[facility] ([facility]) Diastolic blood pressure 84 mm[Hg] 84 mm[Hg] [facility] ([facility]) Body temperature 94.4 [degF] 94.4 [degF] MED[facility] ([facility]) Body weight 200.00 [lb_av] 200.00 [lb_av] MEDEN T ([facility]) Systolic blood pressure 146 mm[Hg] 146 mm[Hg] M EDENT ([facility]) Systolic blood pressure 142 mm[Hg] 142 mm[Hg] [...] 59 [in_i] [facility] ([facility] " Body weight 207.38 [lb_av] 207.38 [lb_av] MEDEN T ([facility] Oxygen saturation in Arterial blood by Pulse oximetry 98 % 98 % [facility] [place] body weight 100 [lb_av] 100 [lb_av] MEDEN T ([facility] Body mass index (BMI) [Ratio] 41.9 kg/m2 41.9 k g/m2 [facility] ([facility] Systolic blood pressure 130 mm[Hg] 130 mm[Hg] [facility] ([facility]) Diastolic blood pressure 84 mm[Hg] 84 mm[Hg] [facility] ([facility], [facility]) Heart rate 62 /min 62 /min [facility] ([facility], [facility]) Respiratory rate 16 /min 16 /min [facility] ( [facility], [facility]) Oxygen saturation in Arterial blood by Pulse oximetry 98 % 98 % [facility] ([facility]) Body temperature 96.6 [degF] 96.6 [degF] MED[facility] ([facility], [facility]) Body weight 200.00 [lb_av] 200.00 [lb_av] MEDEN T ([facility], [facility]) Body height 59 [in_i] 59 [in_i] [facility] ([facility]) " Body mass index (BMI) [Ratio] 40.4 kg/m2 40.4 k g/m2 [facility] ([facility]) Systolic blood pressure 153 mm[Hg] 153 mm[Hg] [facility] ([facility], ) Diastolic blood pressure 87 mm[Hg] 87 mm[Hg] [facility] ([facility], ) Body height 59 [in_i] 59 [in_i] [facility] 4'11" Body weight 206.00 [lb_av] 206.00 [lb_av] MEDEN T ([facility]) Body mass index (BMI) [Ratio] 41.6 kg/m2 41.6 k g/m2 [facility] ([facility]) Her[place] body weight 100 [lb_av] 100 [lb_av] [facility] Body weight 93.442 kg 93.442 kg [facility] ([facility]) Heart rate 56 /min 56 /min [facility] ([facility] Respiratory rate 16 /min 16 /min [facility] ( [facility] Systolic blood pressure 108 mm[Hg] 108 mm[Hg] [facility] ([facility] Diastolic blood pressure 64 mm[Hg] 64 mm[Hg] [facility] ([facility] Body weight 207.00 [lb_av] 207.00 [lb_av] MEDEN T ([facility]
== END 2021-01-29 09:55 | disposition home or self-care (01) ==
LOC: M ED 05:31
DX: S29.091A Other injury of muscle and tendon of front wall of thorax, initial encounter (principal); M94.0 Chondrocostal junction syndrome [Tietze]; X58.XXXA Exposure to other specified factors, initial encounter; Y92.9 Unspecified place or not applicable; Y93.9 Activity, unspecified; Y99.9 Unspecified external cause status; J98.11 Atelectasis; E66.9 Obesity, unspecified; I10 Essential (primary) hypertension; E78.5 Hyperlipidemia, unspecified; K57.92 Diverticulitis of intestine, part unspecified, without perforation or abscess without bleeding; Z79.82 Long term (current) use of aspirin; Z79.899 Other long term (current) drug therapy; Z88.8 Allergy status to other drugs, medicaments and biological substances

== ENCOUNTER → 2021-08-21 | Outpatient (CLI) | payer MEDICARE, OTHER ==
[2021-08-21 10:52] LABS: ALBUMIN 3.5 GM/DL (3.2-5.2); ALT/SGPT 56 U/L (12-78); BILIRUBIN,TOTAL 0.5 MG/DL (0.2-1.0); BLOOD UREA NITROGEN 12 MG/DL (7-18); CALCIUM LEVEL 9.7 MG/DL (8.8-10.2); CARBON DIOXIDE LEVEL 27 MEQ/L (21-32); CHLORIDE LEVEL 110 MEQ/L (98-107); CHOLESTEROL LEVEL 168 MG/DL (<200); CREATININE FOR GFR 0.65 MG/DL (0.55-1.30); GLOMERULAR FILTRATION RATE > 60.0 (>45); GLUCOSE, FASTING 122 MG/DL (70-100); HDL CHOLESTEROL 40 MG/DL (>40); LDL CHOLESTEROL 95 MG/DL (<100); NON-HDL-C 128 MG/DL; POTASSIUM SERUM 4.1 MEQ/L (3.5-5.1); SODIUM LEVEL 144 MEQ/L (136-145); TOTAL PROTEIN 6.7 GM/DL (6.4-8.2); TRIGLYCERIDES LEVEL 163 MG/DL (<150)
[2021-08-21 11:57] LABS: HEMOGLOBIN A1c 5.9 %
== END ==
LOC: M LAB 09:54
PROVIDERS: ATTEND Nurse Practitioner Family
DX: R73.03 Prediabetes (principal); I10 Essential (primary) hypertension

== ENCOUNTER → 2021-09-15 | Outpatient (CLI) | payer MEDICARE, OTHER | LOC: M WHC 11:21 | PROVIDERS: ATTEND Nurse Practitioner Family | DX: Z12.31 Encounter for screening mammogram for malignant neoplasm of breast (principal); Z13.820 Encounter for screening for osteoporosis; Z78.0 Asymptomatic menopausal state; Z80.41 Family history of malignant neoplasm of ovary; Z80.0 Family history of malignant neoplasm of digestive organs; Z80.3 Family history of malignant neoplasm of breast; Z92.0 Personal history of contraception ==

== ENCOUNTER → 2021-09-30 | Outpatient (REF) | payer MEDICARE, OTHER ==
[2021-09-30 14:25] LABS: APPEARANCE, URINE CLOUDY (CLEAR); BACTERIA, URINE AUTO 3+ (NEGATIVE); BILIRUBIN, URINE AUTO NEGATIVE (NEGATIVE); BLOOD, URINE BLOOD NEGATIVE (NEGATIVE); CALCIUM OXALATE CRYSTALS SMALL; COLOR, URINE YELLOW (YELLOW); GLUCOSE, URINE (UA) AUTO NEGATIVE (NEGATIVE); KETONE, URINE AUTO NEGATIVE (NEGATIVE); LEUKOCYTE ESTERASE, URINE AUTO 1+ (NEGATIVE); MUCUS, URINE SMALL (NEGATIVE); NITRITE, URINE AUTO POSITIVE (NEGATIVE); PROTEIN, URINE AUTO NEGATIVE (NEGATIVE); RBC, URINE AUTO 3 /HPF (0-3); SPECIFIC GRAVITY URINE AUTO 1.019 (1.002-1.035); SQUAMOUS EPITHELIAL CELL UR AU 1 /HPF (0-6); UROBILINOGEN, URINE AUTO 0.2 mg/dL (0.0-2.0); WBC, URINE AUTO 17 /HPF (0-3)
== END ==
LOC: M SMT 13:02
PROVIDERS: ATTEND Urology
DX: N39.41 Urge incontinence (principal)

== ENCOUNTER → 2021-10-01 | Outpatient (CLI) | payer MEDICARE, OTHER ==
[2021-10-01 13:12] LABS: HEMATOCRIT 44.4 % (36.0-47.0); MEAN CORPUSCULAR HEMOGLOBIN 32.2 pg (27.0-33.0); MEAN CORPUSCULAR HGB CONC 33.8 g/dl (32.0-36.5); MEAN CORPUSCULAR VOLUME 95.3 fl (80.0-96.0); PLATELET COUNT, AUTOMATED 220 10^3/uL (150-450); RED BLOOD COUNT 4.66 10^6/uL (4.00-5.40); WHITE BLOOD COUNT 7.6 10^3/uL (4.0-10.0)
[2021-10-01 13:23] LABS: INR 1.01; PROTHROMBIN TIME 13.7 SECONDS (12.7-14.5)
[2021-10-01 18:47] LABS: ALT/SGPT 70 U/L (12-78); BILIRUBIN,TOTAL 0.4 MG/DL (0.2-1.0); BLOOD UREA NITROGEN 14 MG/DL (7-18); CARBON DIOXIDE LEVEL 30 MEQ/L (21-32); CHLORIDE LEVEL 109 MEQ/L (98-107); CREATININE FOR GFR 0.64 MG/DL (0.55-1.30); GLOMERULAR FILTRATION RATE > 60.0 (>45); GLUCOSE, FASTING 96 MG/DL (70-100); SODIUM LEVEL 145 MEQ/L (136-145)
== END ==
LOC: M WUC 11:35
PROVIDERS: ATTEND Urology
DX: N39.41 Urge incontinence (principal); R39.15 Urgency of urination; Z80.0 Family history of malignant neoplasm of digestive organs; Z80.41 Family history of malignant neoplasm of ovary; Z80.49 Family history of malignant neoplasm of other genital organs; Z87.442 Personal history of urinary calculi; Z79.899 Other long term (current) drug therapy; Z79.82 Long term (current) use of aspirin

== ENCOUNTER → 2021-10-13 | Outpatient (CLI) | payer MEDICARE, OTHER ==
[~2021-10-13] MED LIST changes: +ALBU8.5H INH; +CIDA500T2 PO; +DONE10TA90 PO; +ERGO500029 PO; +FISH1000 PO; +FLUO20CA22 PO; +SERT25TA21 PO; +VIBE75TA PO; +VITMTA PO
== END ==
LOC: M LABSMTC 11:12
PROVIDERS: ATTEND Anesthesiology
DX: Z01.812 Encounter for preprocedural laboratory examination (principal); Z20.822 Contact with and (suspected) exposure to COVID-19

== ENCOUNTER 2021-10-18 06:45 | Day surgery (SDC) | payer MEDICARE, OTHER ==
[~2021-10-18] VITALS: Ht 149.9 cm; Wt 94.3 kg
[2021-10-18] MEDS ORDERED: LR 1,000 ML IV SCH (07:10)
[2021-10-18] MEDS: ceFAZolin SOD 2 GM in IV 1 EA IV ONE ×2 (07:40→08:40)
[2021-10-18] MEDS ORDERED: LIDOCAINE 2% 100MG/5ML SDV (FOR ANES.) As Ordered ONE (08:08)
[2021-10-18] MEDS ORDERED: propofoL 200 MG/20 ML VIAL As Ordered ONE (08:08)
[2021-10-18] MEDS ORDERED: LIDOCAINE 1% SDV 30ML VIAL As Ordered ONE ×2 (08:08→08:56)
[2021-10-18] MEDS ORDERED: fentaNYL 100 MCG/2 ML INJECTION As Ordered ONE (08:10)
[2021-10-18] MEDS ORDERED: MIDAZOLAM INJ 2MG/2ML VIAL (J2250 PER 1MG) As Ordered ONE (08:10)
[2021-10-18] MEDS ORDERED: CEPH500C PO (09:14)
[2021-10-18 09:40] VITALS: BP 127/62
== END 2021-10-18 09:53 | disposition home or self-care (01) ==
LOC: M SDC 06:45
PROVIDERS: ATTEND Urology
DX: N32.81 Overactive bladder (principal); N39.41 Urge incontinence; I10 Essential (primary) hypertension; K57.92 Diverticulitis of intestine, part unspecified, without perforation or abscess without bleeding; E78.5 Hyperlipidemia, unspecified; F41.9 Anxiety disorder, unspecified; G31.84 Mild cognitive impairment of uncertain or unknown etiology; Z79.82 Long term (current) use of aspirin; Z79.899 Other long term (current) drug therapy; Z80.0 Family history of malignant neoplasm of digestive organs; Z80.41 Family history of malignant neoplasm of ovary; Z87.442 Personal history of urinary calculi; Z88.8 Allergy status to other drugs, medicaments and biological substances
CPT/HCPCS: 64561; 76000; C1778; C1787; J0690; J2250; J3010

== ENCOUNTER → 2021-10-31 | Outpatient (CLI) | payer MEDICARE, OTHER ==
[~2021-10-31] MED LIST changes: +CEPH500C PO
== END ==
LOC: M LABSMTC 10:59
PROVIDERS: ATTEND Anesthesiology
DX: Z01.812 Encounter for preprocedural laboratory examination (principal); Z20.822 Contact with and (suspected) exposure to COVID-19

== ENCOUNTER 2021-11-04 08:03 | Day surgery (SDC) | payer MEDICARE, OTHER ==
[~2021-11-04] VITALS: Ht 149.9 cm; Wt 94.5 kg
[2021-11-04] MEDS ORDERED: propofoL 200 MG/20 ML VIAL As Ordered ONE (08:48)
[2021-11-04] MEDS ORDERED: LIDOCAINE 2% 100MG/5ML SDV (FOR ANES.) As Ordered ONE (08:48)
[2021-11-04] MEDS ORDERED: fentaNYL 100 MCG/2 ML INJECTION As Ordered ONE (08:48)
[2021-11-04] MEDS ORDERED: LR 1,000 ML IV SCH (08:50)
[2021-11-04] MEDS ORDERED: ONDANSETRON 4MG 2ML VIAL As Ordered ONE (08:51)
[2021-11-04] MEDS ORDERED: ASPI81CH33 PO (08:56)
[2021-11-04] MEDS ORDERED: ceFAZolin 2 GM/D5W 50 ML IV BAG (J0690 PER 500MG) As Ordered ONE (08:58)
[2021-11-04] MEDS ORDERED: LIDOCAINE 1% SDV 30ML VIAL As Ordered ONE (09:45)
[2021-11-04] MEDS ORDERED: ceFAZolin 1GM VIAL (J0690 PER 500MG) As Ordered ONE (10:48)
[2021-11-04] MEDS ORDERED: CEPH500C PO (11:23)
[2021-11-04] MEDS ORDERED: HYDR-3713 PO (11:23)
[2021-11-04 12:00] VITALS: BP 152/93
[2021-11-05] MEDS ORDERED: ceFAZolin SOD 2 GM in IV 1 EA IV ONE (06:00)
== END 2021-11-04 12:10 | disposition home or self-care (01) ==
LOC: M SDC 08:03
PROVIDERS: ATTEND Urology
DX: N32.81 Overactive bladder (principal); R32 Unspecified urinary incontinence; I10 Essential (primary) hypertension; F41.9 Anxiety disorder, unspecified; F32.A Depression, unspecified; F03.90 Unspecified dementia, unspecified severity, without behavioral disturbance, psychotic disturbance, mood disturbance, and anxiety; Z79.82 Long term (current) use of aspirin; Z79.899 Other long term (current) drug therapy; Z88.8 Allergy status to other drugs, medicaments and biological substances
CPT/HCPCS: 64581; 64590; 76000; C1778; C1897; J0690; J2405; J3010

== ENCOUNTER → 2022-01-12 | Outpatient (REF) | payer MEDICARE, OTHER ==
[~2022-01-12] MED LIST changes: +ASPI81CH33 PO; +HYDR-3713 PO
[2022-01-12 19:01] LABS: FREE T4 0.84 NG/DL (0.76-1.46); THYROID STIMULATING HORMONE 2.37 uIU/ML (0.358-3.740)
== END ==
LOC: M WUC 16:33
PROVIDERS: ATTEND Nurse Practitioner Family
DX: R43.0 Anosmia (principal); E07.9 Disorder of thyroid, unspecified

== ENCOUNTER → 2022-06-01 | Outpatient (CLI) | payer MEDICARE, OTHER ==
[2022-06-01 17:21] LABS: HEMOGLOBIN A1c 5.6 % (4.0-6.0)
[2022-06-01 17:26] LABS: ALBUMIN 3.7 G/DL (3.2-5.2); ALKALINE PHOSPHATASE 39 U/L (46-116); ALT/SGPT 54 U/L (7.0-40); AST/SGOT 36 U/L (<34); BILIRUBIN,TOTAL 0.6 MG/DL (0.3-1.2); BLOOD UREA NITROGEN 16 MG/DL (9-23); CALCIUM LEVEL 9.6 MG/DL (8.3-10.6); CARBON DIOXIDE LEVEL 29 MMOL/L (20-31); CHLORIDE LEVEL 105 MMOL/L (98-107); CHOLESTEROL LEVEL 171 MG/DL (<200); CHOLESTEROL RISK RATIO 4.13 (<5); CREATININE FOR GFR 0.71 MG/DL (0.55-1.30); GLOMERULAR FILTRATION RATE > 60.0 (>45); GLUCOSE, FASTING 158 MG/DL (74-106); HDL CHOLESTEROL 41.4 MG/DL (>40); LDL CHOLESTEROL 85.2 MG/DL (<100); NON-HDL-C 129.6 MG/DL; POTASSIUM SERUM 3.9 MMOL/L (3.5-5.1); SODIUM LEVEL 142 MMOL/L (136-145); TOTAL 25(OH) VITAMIN D 47.2 NG/ML (20.0-100.0); TOTAL PROTEIN 6.5 G/DL (5.7-8.2); TRIGLYCERIDES LEVEL 222 MG/DL (<150)
[2022-06-01 17:31] LABS: CREATININE, URINE 108.6 MG/DL; MAU/CREAT RATIO 7.3 MCG/MG (0.0-30.0)
== END ==
LOC: M WUC 12:54
PROVIDERS: ATTEND Nurse Practitioner Family
DX: I10 Essential (primary) hypertension (principal); E78.2 Mixed hyperlipidemia; R73.03 Prediabetes; E55.9 Vitamin D deficiency, unspecified

== ENCOUNTER → 2022-10-07 | Outpatient (CLI) | payer MEDICARE, OTHER | LOC: M WHC 15:02 | PROVIDERS: ATTEND Nurse Practitioner Family | DX: Z12.31 Encounter for screening mammogram for malignant neoplasm of breast (principal) ==

== ENCOUNTER 2022-10-26 07:50 | Day surgery (SDC) | payer MEDICARE, OTHER ==
[~2022-10-26] VITALS: Ht 149.9 cm; Wt 96.3 kg
[~2022-10-26 07:50] MED LIST changes: +NAME10TA PO; +NS 1,000 ML IV ONE; +PANT20TA6 PO; +VESI5TAB2 PO
[2022-10-26] MEDS ORDERED: propofoL 200 MG/20 ML VIAL As Ordered ONE (08:48)
[2022-10-26 09:39] VITALS: BP 178/74; O2SAT 98
== END 2022-10-26 09:42 | disposition home or self-care (01) ==
LOC: M OPP 07:50
PROVIDERS: ATTEND Internal Medicine Gastroenterology
DX: Z12.11 Encounter for screening for malignant neoplasm of colon (principal); Z86.010 Personal history of colon polyps; D12.3 Benign neoplasm of transverse colon; K64.0 First degree hemorrhoids; K57.30 Diverticulosis of large intestine without perforation or abscess without bleeding; Z79.82 Long term (current) use of aspirin; Z79.899 Other long term (current) drug therapy; Z79.891 Long term (current) use of opiate analgesic

== ENCOUNTER → 2023-02-20 | Outpatient (CLI) | payer MEDICARE, OTHER ==
[~2023-02-20] MED LIST changes: -BIOT50004 PO; +BIOT5CAP8 PO; +MECL-209 PO; -MECL1TAB31 PO; -NS 1,000 ML IV ONE
[2023-02-20 17:18] LABS: ALBUMIN 3.6 G/DL (3.2-5.2); ALKALINE PHOSPHATASE 39 U/L (46-116); ALT/SGPT 42 U/L (7.0-40); AST/SGOT 26 U/L (<34); BILIRUBIN,TOTAL 0.5 MG/DL (0.3-1.2); BLOOD UREA NITROGEN 15 MG/DL (9-23); CALCIUM LEVEL 8.9 MG/DL (8.3-10.6); CARBON DIOXIDE LEVEL 32 MMOL/L (20-31); CHLORIDE LEVEL 103 MMOL/L (98-107); CHOLESTEROL LEVEL 159 MG/DL (<200); CHOLESTEROL RISK RATIO 3.21 (<5); CREATININE FOR GFR 0.62 MG/DL (0.55-1.30); GLOMERULAR FILTRATION RATE > 60.0 (>45); GLUCOSE, FASTING 149 MG/DL (74-106); HDL CHOLESTEROL 49.4 MG/DL (>40); LDL CHOLESTEROL 81.8 MG/DL (<100); NON-HDL-C 109.6 MG/DL; POTASSIUM SERUM 3.6 MMOL/L (3.5-5.1); SODIUM LEVEL 142 MMOL/L (136-145); TOTAL PROTEIN 6.7 G/DL (5.7-8.2); TRIGLYCERIDES LEVEL 139 MG/DL (<150)
[2023-02-20 17:21] LABS: TOTAL 25(OH) VITAMIN D 49.5 NG/ML (20.0-100.0)
[2023-02-20 17:28] LABS: CREATININE, URINE 219.1 MG/DL
[2023-02-20 17:29] LABS: MAU/CREAT RATIO 10.4 MCG/MG (0.0-30.0)
== END ==
LOC: M WUC 11:00
PROVIDERS: ATTEND Nurse Practitioner Family
DX: I10 Essential (primary) hypertension (principal); R73.03 Prediabetes; E55.9 Vitamin D deficiency, unspecified

== ENCOUNTER → 2023-05-23 | Outpatient (REF) | payer MEDICARE, OTHER ==
[2023-05-23 11:59] LABS: APPEARANCE, URINE HAZY (CLEAR); BACTERIA, URINE AUTO 1+ (NEGATIVE); BILIRUBIN, URINE AUTO NEGATIVE (NEGATIVE); BLOOD, URINE BLOOD NEGATIVE (NEGATIVE); CALCIUM OXALATE CRYSTALS SMALL; COLOR, URINE YELLOW (YELLOW); GLUCOSE, URINE (UA) AUTO NEGATIVE (NEGATIVE); KETONE, URINE AUTO NEGATIVE (NEGATIVE); LEUKOCYTE ESTERASE, URINE AUTO TRACE (NEGATIVE); MUCUS, URINE SMALL (NEGATIVE); NITRITE, URINE AUTO NEGATIVE (NEGATIVE); PROTEIN, URINE AUTO NEGATIVE (NEGATIVE); RBC, URINE AUTO 0 /HPF (0-3); SPECIFIC GRAVITY URINE AUTO 1.025 (1.002-1.035); SQUAMOUS EPITHELIAL CELL UR AU 7 /HPF (0-6); UROBILINOGEN, URINE AUTO 0.2 mg/dL (0.0-2.0); WBC, URINE AUTO 5 /HPF (0-3)
== END ==
LOC: M LAB REF 09:10
PROVIDERS: ATTEND Nurse Practitioner Family
DX: N39.42 Incontinence without sensory awareness (principal)

== ENCOUNTER → 2023-08-08 | Outpatient (CLI) | payer MEDICARE, OTHER | LOC: M PLAIMG 12:04 | PROVIDERS: ATTEND Nurse Practitioner Family | DX: M25.522 Pain in left elbow (principal); M25.532 Pain in left wrist; M19.042 Primary osteoarthritis, left hand; M19.032 Primary osteoarthritis, left wrist ==

== ENCOUNTER 2023-08-28 19:47 | Emergency (ER) | payer MEDICARE, OTHER ==
[~2023-08-28] VITALS: Ht 167.6 cm; Wt 98.6 kg
[~2023-08-28 19:47] MED LIST changes: +FLUO-365 PO; -FLUO20CA22 PO
[2023-08-28 19:57] VITALS: TEMP 98.6
[2023-08-28] MEDS ORDERED: ECOT81TA5 PO (20:16)
[2023-08-28 20:38] LABS: BASO % 0.6 % (0.0-1.0); EOS % 0.1 % (0.0-3.0); HEMOGLOBIN 14.5 g/dl (12.0-15.5); LYMPH % 13.9 % (24.0-44.0); MEAN CORPUSCULAR HEMOGLOBIN 32.9 pg (27.0-33.0); MEAN CORPUSCULAR HGB CONC 34.5 g/dl (32.0-36.5); MEAN CORPUSCULAR VOLUME 95.2 fl (80.0-96.0); MONO # 0.7 10^3/uL (0.0-0.8); MONO % 10.1 % (2.0-8.0); NEUTROPHILS # 5.2 10^3/uL (1.5-8.5); NEUTROPHILS % 74.7 % (36.0-66.0); PLATELET COUNT, AUTOMATED 146 10^3/uL (150-450); RED BLOOD COUNT 4.41 10^6/uL (4.00-5.40); WHITE BLOOD COUNT 6.9 10^3/uL (4.0-10.0)
[2023-08-28 20:46] VITALS: BP 137/76
[2023-08-28 21:00] LABS: BLOOD UREA NITROGEN 12 MG/DL (9-23); CALCIUM LEVEL 9.2 MG/DL (8.3-10.6); CARBON DIOXIDE LEVEL 29 MMOL/L (20-31); CHLORIDE LEVEL 102 MMOL/L (98-107); CREATININE FOR GFR 0.66 MG/DL (0.55-1.30); GLOMERULAR FILTRATION RATE > 60.0 (>45); GLUCOSE, FASTING 140 MG/DL (74-106); POTASSIUM SERUM 3.8 MMOL/L (3.5-5.1); SODIUM LEVEL 139 MMOL/L (136-145)
[2023-08-28] MEDS: ceFAZolin SOD 1 GM in D5W MINI-BAG PLUS 50 ML IV ONE (21:30)
[2023-08-28] MEDS ORDERED: CEPH500C PO (22:11)
[2023-08-28 22:16] VITALS: O2SAT 97
[2023-08-28] MEDS: CEPHALEXIN 500 MG CAP PO ONE (22:20)
[2023-09-02] MEDS ORDERED: CIPR-249 PO (18:24)
== END 2023-08-28 22:33 | disposition home or self-care (01) ==
LOC: M ED 19:47
DX: N30.00 Acute cystitis without hematuria (principal); F03.90 Unspecified dementia, unspecified severity, without behavioral disturbance, psychotic disturbance, mood disturbance, and anxiety; I10 Essential (primary) hypertension; E78.5 Hyperlipidemia, unspecified; Z87.440 Personal history of urinary (tract) infections; Z87.442 Personal history of urinary calculi; Z79.899 Other long term (current) drug therapy; Z79.82 Long term (current) use of aspirin; Z88.8 Allergy status to other drugs, medicaments and biological substances
CPT/HCPCS: 51701; 70450; 71045; 80048; 81001; 83605; 85025; 87040; 87088; 87186; 87486; 87581; 87633; 87798; 93005; 96365; 99284; J0690

== ENCOUNTER → 2023-12-27 | Outpatient (CLI) | payer MEDICARE, OTHER ==
[~2023-12-27] MED LIST changes: +CIPR-249 PO; +ECOT81TA5 PO
== END ==
LOC: M WHC 14:02
PROVIDERS: ATTEND Nurse Practitioner Family
DX: Z12.31 Encounter for screening mammogram for malignant neoplasm of breast (principal); R92.313 Mammographic fatty tissue density, bilateral breasts

== ENCOUNTER → 2024-02-14 | Outpatient (CLI) | payer MEDICARE, OTHER ==
[~2024-02-14] MED LIST changes: +ASPI-226 PO; +DONE5TAB82 PO; +HYDR-3490 PO; +MEMA10TA PO; +MIRA50TA2 PO; +NYAM10003 TOP; +PANT40TA29 PO; +SOLI10TA PO; +THERTAB52 PO; +VITA1CAP25 PO
[2024-02-14 15:49] LABS: ALBUMIN 3.6 G/DL (3.2-5.2); ALKALINE PHOSPHATASE 46 U/L (35-104); ALT/SGPT 22 U/L (7.0-40); AST/SGOT 15 U/L (<34); BILIRUBIN,TOTAL 0.6 MG/DL (0.3-1.2); BLOOD UREA NITROGEN 15 MG/DL (9-23); CALCIUM LEVEL 10.3 MG/DL (8.3-10.6); CARBON DIOXIDE LEVEL 32 MMOL/L (20-31); CHLORIDE LEVEL 106 MMOL/L (98-107); CHOLESTEROL LEVEL 145 MG/DL (<200); CHOLESTEROL RISK RATIO 3.63 (<5); GLOMERULAR FILTRATION RATE > 60.0 (>39); GLUCOSE, FASTING 98 MG/DL (74-106); HDL CHOLESTEROL 39.9 MG/DL (>40); LDL CHOLESTEROL 71.7 MG/DL (<100); NON-HDL-C 105.1 MG/DL; POTASSIUM SERUM 3.8 MMOL/L (3.5-5.1); SODIUM LEVEL 142 MMOL/L (136-145); TOTAL PROTEIN 6.7 G/DL (5.7-8.2); TRIGLYCERIDES LEVEL 167 MG/DL (<150)
[2024-02-14 15:52] LABS: TOTAL 25(OH) VITAMIN D 83.9 NG/ML (20.0-100.0)
[2024-02-14 18:04] LABS: HEMOGLOBIN A1c 5.6 % (4.0-6.0)
== END ==
LOC: M PLALAB 12:26
PROVIDERS: ATTEND Nurse Practitioner Family
DX: I10 Essential (primary) hypertension (principal); R73.03 Prediabetes; E78.2 Mixed hyperlipidemia; E55.9 Vitamin D deficiency, unspecified

== ENCOUNTER 2024-02-28 11:04 | Day surgery (SDC) | payer MEDICARE, OTHER ==
[~2024-02-28] VITALS: Ht 149.9 cm; Wt 90.5 kg
[~2024-02-28 11:04] MED LIST changes: +PHENYLEPHRINE 10% OPHTH SOL 5ML OD PRN; +PHENYLEPHRINE 10% OPHTH SOL 5ML OS PRN
[2024-02-28] MEDS ORDERED: fentaNYL 100 MCG/2 ML INJECTION As Ordered ONE (11:10)
[2024-02-28] MEDS ORDERED: MIDAZOLAM INJ 2MG/2ML VIAL As Ordered ONE (11:10)
[2024-02-28] MEDS ORDERED: TRIM100T16 PO (12:00)
[2024-02-28] MEDS: OFLOXACIN 0.3 % (OCUFLOX) OPTH SOL 5ML OD ONE (12:15)
[2024-02-28] MEDS: LIDOCAINE 3.5 % 1ML OPHTH TOPICAL GEL OU ONE ×2 (12:15→13:26)
[2024-02-28] MEDS: PHENYLEPHRINE 2.5% OPHTH SOL 2ML OD SCH (12:19)
[2024-02-28] MEDS: CYCLOPENTOLATE 1% OPHTH SOLN 2ML BTL OD SCH (12:19)
[2024-02-28] MEDS: TROPICAMIDE 1% OPHTH SOLN 15ML OD SCH (12:19)
[2024-02-28] MEDS: LIDOCAINE 1% SDV 5ML VIAL As Ordered ONE (13:10)
[2024-02-28] MEDS: BSS IRRIG/VANCO(10MG)/TOBRA(5MG)/EPINEPH(1:1000-0.5CC)500ML BAG-ORONLY As Ordered ONE (13:10)
[2024-02-28] MEDS: CEFUROXIME 1MG/0.1ML INTRACAMERAL INJ As Ordered ONE (13:10)
[2024-02-28 13:25] VITALS: BP 142/88; TEMP 97.2; O2SAT 96
[2024-02-28] MEDS: CYCLOPENTOLATE 1% OPHTH SOLN 2ML BTL OS SCH (13:25)
[2024-02-28] MEDS: TROPICAMIDE 1% OPHTH SOLN 15ML OS SCH (13:25)
[2024-02-28] MEDS: PHENYLEPHRINE 2.5% OPHTH SOL 2ML OS SCH (13:25)
[2024-02-28] MEDS: OFLOXACIN 0.3 % (OCUFLOX) OPTH SOL 5ML OS ONE (13:26)
== END 2024-02-28 13:51 | disposition home or self-care (01) ==
LOC: M SDC 11:04
PROVIDERS: ATTEND Ophthalmology
DX: H25.11 Age-related nuclear cataract, right eye (principal); I10 Essential (primary) hypertension; K21.9 Gastro-esophageal reflux disease without esophagitis; G47.30 Sleep apnea, unspecified; R32 Unspecified urinary incontinence; Z79.899 Other long term (current) drug therapy; Z79.82 Long term (current) use of aspirin; Z88.8 Allergy status to other drugs, medicaments and biological substances; M85.859 Other specified disorders of bone density and structure, unspecified thigh
CPT/HCPCS: 66984; J0697; J2250; J3010; V2632

== ENCOUNTER 2024-03-20 12:13 | Day surgery (SDC) | payer MEDICARE, OTHER ==
[~2024-03-20] VITALS: Ht 149.9 cm; Wt 88.8 kg
[~2024-03-20 12:13] MED LIST changes: -PHENYLEPHRINE 10% OPHTH SOL 5ML OS PRN; +TRIM100T16 PO
[2024-03-20] MEDS ORDERED: MIDAZOLAM INJ 2MG/2ML VIAL As Ordered ONE (14:02)
[2024-03-20] MEDS ORDERED: fentaNYL 100 MCG/2 ML INJECTION As Ordered ONE (14:03)
[2024-03-20] MEDS: TROPICAMIDE 1% OPHTH SOLN 15ML OD SCH (14:05)
[2024-03-20] MEDS: PHENYLEPHRINE 2.5% OPHTH SOL 2ML OD SCH (14:05)
[2024-03-20] MEDS: OFLOXACIN 0.3 % (OCUFLOX) OPTH SOL 5ML OD ONE (14:05)
[2024-03-20] MEDS: LIDOCAINE 3.5 % 1ML OPHTH TOPICAL GEL OU ONE (14:05)
[2024-03-20] MEDS: CYCLOPENTOLATE 1% OPHTH SOLN 2ML BTL OD SCH (14:05)
[2024-03-20] MEDS: LIDOCAINE 1% SDV 5ML VIAL As Ordered ONE (14:37)
[2024-03-20] MEDS: BSS IRRIG/VANCO(10MG)/TOBRA(5MG)/EPINEPH(1:1000-0.5CC)500ML BAG-ORONLY As Ordered ONE (14:37)
[2024-03-20] MEDS: CEFUROXIME 1MG/0.1ML INTRACAMERAL INJ As Ordered ONE (14:41)
[2024-03-20 14:55] VITALS: BP 143/75; TEMP 98.6; O2SAT 98
== END 2024-03-20 15:20 | disposition home or self-care (01) ==
LOC: M SDC 12:13
PROVIDERS: ATTEND Ophthalmology
DX: H25.11 Age-related nuclear cataract, right eye (principal); I10 Essential (primary) hypertension; R32 Unspecified urinary incontinence; G47.30 Sleep apnea, unspecified; K21.9 Gastro-esophageal reflux disease without esophagitis; Z79.899 Other long term (current) drug therapy; Z79.82 Long term (current) use of aspirin; Z88.8 Allergy status to other drugs, medicaments and biological substances
CPT/HCPCS: 66984; J0697; J2250; J3010; V2632

== ENCOUNTER 2024-05-31 10:13 | Emergency (ER) | payer MEDICARE, OTHER ==
[~2024-05-31] VITALS: Ht 149.9 cm; Wt 90.9 kg
[~2024-05-31 10:13] MED LIST changes: -PHENYLEPHRINE 10% OPHTH SOL 5ML OD PRN
[2024-05-31 10:15] VITALS: TEMP 96.4
[2024-05-31] MEDS ORDERED: FLUO40CA (10:29)
[2024-05-31] MEDS ORDERED: CERTTAB8 (10:29)
[2024-05-31 12:51] VITALS: BP 111/54; O2SAT 97
== END 2024-05-31 12:55 | disposition home or self-care (01) ==
LOC: M ED 10:13
DX: S00.03XA Contusion of scalp, initial encounter (principal); W19.XXXA Unspecified fall, initial encounter; Y92.009 Unspecified place in unspecified non-institutional (private) residence as the place of occurrence of the external cause; Y93.01 Activity, walking, marching and hiking; Y99.9 Unspecified external cause status; F03.90 Unspecified dementia, unspecified severity, without behavioral disturbance, psychotic disturbance, mood disturbance, and anxiety; Z79.82 Long term (current) use of aspirin; Z79.899 Other long term (current) drug therapy; Z88.8 Allergy status to other drugs, medicaments and biological substances

== ENCOUNTER → 2024-09-11 | Outpatient (CLI) | payer MEDICARE, OTHER, MEDICAID ==
[~2024-09-11] MED LIST changes: +CERTTAB8; -FLOM0.4C39 PO; +FLUO40CA; +TAMS-18 PO
[2024-09-11 15:57] LABS: ESTIMATED AVERAGE GLUCOSE 108.0 MG/DL (60-110)
== END ==
LOC: M PLALAB 11:33
PROVIDERS: ATTEND Nurse Practitioner Family
DX: R73.03 Prediabetes (principal)

== ENCOUNTER 2024-10-29 10:29 | Emergency (ER) | payer MEDICARE, OTHER, MEDICAID ==
[2024-10-29 10:57] VITALS: TEMP 97.7
[2024-10-29 13:01] VITALS: BP 124/77
[2024-10-29 13:14] VITALS: O2SAT 95
[2024-10-30] MEDS ORDERED: PANT40GR PO (19:57)
[2024-10-30] MEDS ORDERED: FLUO20SO15 PO (19:57)
[2024-10-30] MEDS ORDERED: MYRB25TA PO (19:57)
[2024-10-30] MEDS ORDERED: DONE5TAB86 PO (19:57)
[2024-10-30] MEDS ORDERED: HYDR12.510 PO (20:00)
[2024-10-30] MEDS ORDERED: OXYBUTYNIN PO (20:00)
[2024-10-30] MEDS ORDERED: PROP20EL PO (20:00)
== END 2024-10-29 13:44 | disposition home or self-care (01) ==
LOC: EDBD 10:29 → M ED 11:49
DX: M25.572 Pain in left ankle and joints of left foot (principal); S91.114A Laceration without foreign body of right lesser toe(s) without damage to nail, initial encounter; X58.XXXA Exposure to other specified factors, initial encounter; Y92.9 Unspecified place or not applicable; Y93.9 Activity, unspecified; Y99.9 Unspecified external cause status; I10 Essential (primary) hypertension; F03.90 Unspecified dementia, unspecified severity, without behavioral disturbance, psychotic disturbance, mood disturbance, and anxiety; Z79.82 Long term (current) use of aspirin; Z79.899 Other long term (current) drug therapy; Z88.8 Allergy status to other drugs, medicaments and biological substances

== ENCOUNTER 2024-10-30 14:59 | Inpatient (IN) | payer MEDICARE, OTHER, MEDICAID ==
[~2024-10-30] VITALS: Ht 142.2 cm; Wt 84.7 kg
[2024-10-30 16:53] LABS: BASO # 0.1 10^3/uL (0.0-0.2); BASO % 0.4 % (0.0-1.0); EOS # 0.0 10^3/uL (0.0-0.5); EOS % 0.1 % (0.0-3.0); LYMPH # 1.8 10^3/uL (1.5-5.0); LYMPH % 15.6 % (24.0-44.0); MONO # 1.4 10^3/uL (0.0-0.8); MONO % 12.0 % (2.0-8.0); NEUTROPHILS # 8.3 10^3/uL (1.5-8.5); NEUTROPHILS % 71.5 % (36.0-66.0); PLATELET COUNT, AUTOMATED 231 10^3/uL (150-450)
[2024-10-30 17:20] LABS: ALT/SGPT 56 U/L (7.0-40); AST/SGOT 89 U/L (<34); CALCIUM LEVEL 9.5 MG/DL (8.3-10.6); CARBON DIOXIDE LEVEL 29 MMOL/L (20-31); CHLORIDE LEVEL 102 MMOL/L (98-107); CREATININE FOR GFR 0.56 MG/DL (0.55-1.30); GLOMERULAR FILTRATION RATE > 90.0 (>39); POTASSIUM SERUM 3.2 MMOL/L (3.5-5.1); SODIUM LEVEL 141 MMOL/L (136-145)
[2024-10-30 17:59] LABS: KETONE, URINE AUTO RFX TRACE mg/dL (NEGATIVE); LEUKOCYTE ESTERASE UR AUTO RFX TRACE (NEGATIVE); NITRITE, URINE AUTO RFX NEGATIVE (NEGATIVE); RBC, URINE AUTO RFX 1 /HPF (0-3); SQUAM EPITHELIAL CELL UR AURFX 1 /HPF (0-6); WBC, URINE AUTO RFX 4 /HPF (0-3)
[2024-10-30] MEDS: cefTRIAXone SOD 1 GM in DEXTROSE 5% (D5W) ADV/MINI-BAG 50 ML IV ONE (18:46)
[2024-10-30] MEDS ORDERED: DONE5TAB86 PO (19:57)
[2024-10-30] MEDS ORDERED: PANT40GR PO (19:57)
[2024-10-30] MEDS ORDERED: FLUO20SO15 PO (19:57)
[2024-10-30] MEDS ORDERED: MYRB25TA PO (19:57)
[2024-10-30] MEDS ORDERED: HOME MED LIST COMPLETE! XX SCH (20:00)
[2024-10-30] MEDS ORDERED: OXYBUTYNIN PO (20:00)
[2024-10-30] MEDS ORDERED: HYDR12.510 PO (20:00)
[2024-10-30] MEDS ORDERED: PROP20EL PO (20:00)
[2024-10-30] MEDS: KCL 20MEQ in NS 1000ML 1,000 ML IV SCH (21:27)
[2024-10-31 06:37] LABS: PLATELET COUNT, AUTOMATED 197 10^3/uL (150-450)
[2024-10-31 06:54] LABS: MAGNESIUM LEVEL 1.4 MG/DL (1.8-2.4)
[2024-10-31 07:08] LABS: ALT/SGPT 47 U/L (7.0-40); AST/SGOT 37 U/L (<34); CALCIUM LEVEL 9.1 MG/DL (8.3-10.6); CARBON DIOXIDE LEVEL 26 MMOL/L (20-31); CHLORIDE LEVEL 104 MMOL/L (98-107); CREATININE FOR GFR 0.55 MG/DL (0.55-1.30); GLOMERULAR FILTRATION RATE > 90.0 (>39); POTASSIUM SERUM 3.0 MMOL/L (3.5-5.1); SODIUM LEVEL 143 MMOL/L (136-145)
[2024-10-31] MEDS ORDERED: KCL 10MEQ/100ML SWI (KRUN) 10 MEQ in IV 1 EA IV ONE (07:35)
[2024-10-31] MEDS: ASPIRIN 81 MG ENTERIC TABLET PO SCH (08:23)
[2024-10-31] MEDS: POTASSIUM CHLORIDE 10MEQ SR TABLET PO ONE (08:23)
[2024-10-31] MEDS: PANTOPRAZOLE 40MG TAB PO SCH (08:23)
[2024-10-31] MEDS: FLUoxetine 20 MG CAP PO SCH (08:23)
[2024-10-31] MEDS: MAG SULF 1GM/100ML (MAG RUN) 1 GM in IV 1 EA IV SCH (08:23)
[2024-10-31] MEDS: ENOXAPARIN 40 MG/0.4 ML SYRINGE (J1650 PER 10MG) SC SCH (08:23)
[2024-10-31] MEDS ORDERED: PANTOPRAZOLE 40MG VIAL IV SCH (09:00)
[2024-10-31] MEDS: DONEPEZIL 5 MG TAB PO SCH (09:46)
[2024-10-31 10:01] LABS: C REACTIVE PROTEIN QUANTITATIV 16.21 MG/DL (<1.0)
[2024-10-31] MEDS: MAG SULF 1GM/100ML (MAG RUN) 1 GM in IV 1 EA IV ONE (12:36)
[2024-10-31 17:15] VITALS: BP 142/75; TEMP 97.3; O2SAT 98
[2024-10-31] MEDS: cefTRIAXone SOD 1 GM in DEXTROSE 5% (D5W) ADV/MINI-BAG 50 ML IV SCH (20:49)
[2024-10-31 21:50] VITALS: BP 139/76; TEMP 97.5; O2SAT 97
[2024-11-01 04:15] VITALS: BP 126/78; TEMP 97.3; O2SAT 98
[2024-11-01 06:28] LABS: BASO # 0.0 10^3/uL (0.0-0.2); BASO % 0.5 % (0.0-1.0); EOS # 0.0 10^3/uL (0.0-0.5); EOS % 0.6 % (0.0-3.0); LYMPH # 1.9 10^3/uL (1.5-5.0); LYMPH % 28.6 % (24.0-44.0); MONO # 0.6 10^3/uL (0.0-0.8); MONO % 9.0 % (2.0-8.0); NEUTROPHILS # 4.0 10^3/uL (1.5-8.5); NEUTROPHILS % 60.8 % (36.0-66.0); PLATELET COUNT, AUTOMATED 185 10^3/uL (150-450)
[2024-11-01 06:55] LABS: ALT/SGPT 29 U/L (7.0-40); AST/SGOT 19 U/L (<34); CALCIUM LEVEL 8.5 MG/DL (8.3-10.6); CARBON DIOXIDE LEVEL 25 MMOL/L (20-31); CHLORIDE LEVEL 110 MMOL/L (98-107); CREATININE FOR GFR 0.49 MG/DL (0.55-1.30); GLOMERULAR FILTRATION RATE > 90.0 (>39); MAGNESIUM LEVEL 1.9 MG/DL (1.8-2.4); POTASSIUM SERUM 3.7 MMOL/L (3.5-5.1); SODIUM LEVEL 145 MMOL/L (136-145)
[2024-11-01 09:16] LABS: C REACTIVE PROTEIN QUANTITATIV 11.97 MG/DL (<1.0)
[2024-11-01 12:00] VITALS: BP 96/67; TEMP 97.3; O2SAT 100
[2024-11-01] MEDS: CEFDINIR 300 MG CAP PO SCH (21:13)
[2024-11-02 04:27] VITALS: BP 149/73; TEMP 97.2; O2SAT 98
[2024-11-02 06:34] LABS: BASO # 0.0 10^3/uL (0.0-0.2); BASO % 0.6 % (0.0-1.0); EOS # 0.0 10^3/uL (0.0-0.5); EOS % 0.5 % (0.0-3.0); LYMPH # 1.7 10^3/uL (1.5-5.0); LYMPH % 25.8 % (24.0-44.0); MONO # 0.7 10^3/uL (0.0-0.8); MONO % 10.2 % (2.0-8.0); NEUTROPHILS # 4.1 10^3/uL (1.5-8.5); NEUTROPHILS % 62.1 % (36.0-66.0); PLATELET COUNT, AUTOMATED 178 10^3/uL (150-450)
[2024-11-03 03:45] VITALS: BP 131/71; TEMP 96.8; O2SAT 97
[2024-11-03] MEDS: ACETAMINOPHEN 325 MG TAB PO PRN (20:22)
[2024-11-04 06:19] VITALS: BP 141/73; TEMP 97.2; O2SAT 99
[2024-11-05 04:00] VITALS: BP 125/65; TEMP 96.8; O2SAT 94
[2024-11-06 04:00] VITALS: BP 116/65; TEMP 97.2; O2SAT 98
[2024-11-06] MEDS ORDERED: MIRALAX *UNIT DOSE* 17 GM PACKET PO PRN (08:20)
[2024-11-06] MEDS ORDERED: DOCUSATE SODIUM 100 MG CAPSULE PO PRN (08:20)
[2024-11-06] MEDS ORDERED: SENNA 8.6 MG TAB PO PRN (08:20)
[2024-11-07 03:43] VITALS: BP 142/78; TEMP 97.6; O2SAT 96
[2024-11-08 03:45] VITALS: BP 139/89; TEMP 98; O2SAT 97
[2024-11-09 04:32] VITALS: BP 129/65; TEMP 97; O2SAT 96
[2024-11-10 04:42] VITALS: BP 132/83; TEMP 97.3; O2SAT 94
[2024-11-11 06:23] VITALS: BP 135/89; TEMP 97; O2SAT 99
[2024-11-12 04:52] VITALS: BP 135/84; TEMP 97.5; O2SAT 97
[2024-11-12] MEDS: ASPIRIN 81 MG CHEWABLE TABLET PO SCH (08:18)
[2024-11-12 08:19] VITALS: BP 138/82
== END 2024-11-12 15:04 | disposition home health service (06) | DRG 562 ==
LOC: EDBD 14:59 → M ED 14:59 → M ED INP 15:00 → OBSVTOIN 10-31 09:22 → M MSPAV 10-31 17:02
PROVIDERS: ADMIT Student in an Organized Health Care Education/Training Program; ATTEND Internal Medicine
DX: S82.892A Other fracture of left lower leg, initial encounter for closed fracture (principal); G93.41 Metabolic encephalopathy; N39.0 Urinary tract infection, site not specified; Z66 Do not resuscitate; M25.572 Pain in left ankle and joints of left foot; F03.90 Unspecified dementia, unspecified severity, without behavioral disturbance, psychotic disturbance, mood disturbance, and anxiety; I10 Essential (primary) hypertension; R32 Unspecified urinary incontinence; E83.42 Hypomagnesemia; G47.33 Obstructive sleep apnea (adult) (pediatric); K21.9 Gastro-esophageal reflux disease without esophagitis; B96.20 Unspecified Escherichia coli [E. coli] as the cause of diseases classified elsewhere; E87.6 Hypokalemia; E80.6 Other disorders of bilirubin metabolism; Z79.82 Long term (current) use of aspirin; Z79.899 Other long term (current) drug therapy; Z88.8 Allergy status to other drugs, medicaments and biological substances; Z90.49 Acquired absence of other specified parts of digestive tract; W19.XXXA Unspecified fall, initial encounter; Y92.009 Unspecified place in unspecified non-institutional (private) residence as the place of occurrence of the external cause

== ENCOUNTER 2024-11-25 15:57 | Inpatient (IN) | payer MEDICARE, OTHER ==
[~2024-11-25] VITALS: Ht 157.5 cm; Wt 75.0 kg
[~2024-11-25 15:57] MED LIST changes: +DONE5TAB86 PO; +FLUO20SO15 PO; +HYDR12.510 PO; +MYRB25TA PO; +OXYBUTYNIN PO; +PANT40GR PO; +PROP20EL PO
[2024-11-25 18:00] LABS: BASO # 0.1 10^3/uL (0.0-0.2); BASO % 1.1 % (0.0-1.0); EOS # 0.1 10^3/uL (0.0-0.5); EOS % 0.9 % (0.0-3.0); LYMPH # 2.6 10^3/uL (1.5-5.0); LYMPH % 27.7 % (24.0-44.0); MONO # 0.8 10^3/uL (0.0-0.8); MONO % 8.1 % (2.0-8.0); NEUTROPHILS # 5.9 10^3/uL (1.5-8.5); NEUTROPHILS % 61.7 % (36.0-66.0); PLATELET COUNT, AUTOMATED 312 10^3/uL (150-450)
[2024-11-25] MEDS: LIDOCAINE 2% 5 ML JELLY UROJET TOP ONE (18:07)
[2024-11-25 18:22] LABS: KETONE, URINE AUTO RFX NEGATIVE (NEGATIVE); MUCUS, URINE RFX LARGE (NEGATIVE); NITRITE, URINE AUTO RFX NEGATIVE (NEGATIVE); RBC, URINE AUTO RFX TNTC /HPF (0-3); SQUAM EPITHELIAL CELL UR AURFX 10 /HPF (0-6)
[2024-11-25 18:22] LABS: ETHYL ALCOHOL (ETHANOL) < 0.003 % (0.000-0.010)
[2024-11-25 18:24] LABS: ALT/SGPT 77 U/L (7.0-40); AST/SGOT 44 U/L (<34); CALCIUM LEVEL 9.2 MG/DL (8.3-10.6); CARBON DIOXIDE LEVEL 29 MMOL/L (20-31); CHLORIDE LEVEL 106 MMOL/L (98-107); CK-MB VALUE MASS 1.3 NG/ML (<3.6); CREATININE FOR GFR 0.55 MG/DL (0.55-1.30); GLOMERULAR FILTRATION RATE > 90.0 (>39); MAGNESIUM LEVEL 1.7 MG/DL (1.8-2.4); POTASSIUM SERUM 3.3 MMOL/L (3.5-5.1); SALICYLATE LEVEL < 3.0 MG/DL (<30); SODIUM LEVEL 143 MMOL/L (136-145)
[2024-11-25 18:24] LABS: LEUKOCYTE ESTERASE UR AUTO RFX 1+ (NEGATIVE); WBC, URINE AUTO RFX TNTC /HPF (0-3)
[2024-11-25 18:29] LABS: CPK CREATINE PHOSPHOKINASE 19 U/L (34-145); MB/CK RELATIVE INDEX 6.84 (< OR =4)
[2024-11-25 18:46] LABS: AMPHETAMINES LEVEL URINE NEGATIVE (NEGATIVE); BARBITURATES URINE NEGATIVE (NEGATIVE); BENZODIAZEPINES URINE NEGATIVE (NEGATIVE); CANNABINOIDS URINE NEGATIVE (NEGATIVE); COCAINE METABOLITE URINE NEGATIVE (NEGATIVE); METHADONE URINE NEGATIVE (NEGATIVE); OPIATES URINE NEGATIVE (NEGATIVE); PHENCYCLIDINE URINE NEGATIVE (NEGATIVE)
[2024-11-25] MEDS ORDERED: MED REC COMMENT (19:09)
[2024-11-25] MEDS ORDERED: HOME MED LIST COMPLETE! XX SCH (19:10)
[2024-11-25] MEDS: cefTRIAXone SOD 1 GM in DEXTROSE 5% (D5W) ADV/MINI-BAG 50 ML IV ONE (20:04)
[2024-11-25] MEDS: MAG SULF 1GM/100ML (MAG RUN) 1 GM in IV 1 EA IV ONE (22:04)
[2024-11-25] MEDS: POTASSIUM CHLORIDE 10MEQ SR TABLET PO ONE (22:04)
[2024-11-25] MEDS: DONEPEZIL 5 MG TAB PO SCH (22:41)
[2024-11-26 07:08] LABS: PLATELET COUNT, AUTOMATED 257 10^3/uL (150-450)
[2024-11-26 07:34] LABS: CALCIUM LEVEL 9.6 MG/DL (8.3-10.6); CARBON DIOXIDE LEVEL 26 MMOL/L (20-31); CHLORIDE LEVEL 104 MMOL/L (98-107); CREATININE FOR GFR 0.57 MG/DL (0.55-1.30); GLOMERULAR FILTRATION RATE > 90.0 (>39); MAGNESIUM LEVEL 2.0 MG/DL (1.8-2.4); POTASSIUM SERUM 3.4 MMOL/L (3.5-5.1); SODIUM LEVEL 142 MMOL/L (136-145)
[2024-11-26] MEDS: ASPIRIN 81 MG ENTERIC TABLET PO SCH (08:52)
[2024-11-26] MEDS: hydroCHLOROthiazide 25 MG TAB PO SCH (08:52)
[2024-11-26] MEDS: PANTOPRAZOLE 40MG TAB PO SCH (08:53)
[2024-11-26] MEDS: FLUoxetine 20 MG CAP PO SCH (08:53)
[2024-11-26] MEDS: ENOXAPARIN 40 MG/0.4 ML SYRINGE (J1650 PER 10MG) SC SCH (09:02)
[2024-11-26] MEDS: POTASSIUM CHLORIDE 10MEQ SR TABLET PO ONE (09:15)
[2024-11-26 13:45] VITALS: BP 152/97; TEMP 97.7; O2SAT 95
[2024-11-26] MEDS: NS (Normal Saline) 0.9% 1,000 ML IV SCH (18:48)
[2024-11-26 19:51] VITALS: BP 153/95; TEMP 97.7; O2SAT 94
[2024-11-26] MEDS: cefTRIAXone SOD 1 GM in DEXTROSE 5% (D5W) ADV/MINI-BAG 50 ML IV SCH (19:54)
[2024-11-26] MEDS: KCL 10MEQ/100ML SWI (KRUN) 10 MEQ in IV 1 EA IV SCH (20:57)
[2024-11-27 03:46] VITALS: BP 151/90; TEMP 97.9; O2SAT 95
[2024-11-27 06:16] LABS: PLATELET COUNT, AUTOMATED 222 10^3/uL (150-450)
[2024-11-27 06:43] LABS: CALCIUM LEVEL 8.7 MG/DL (8.3-10.6); CARBON DIOXIDE LEVEL 26 MMOL/L (20-31); CHLORIDE LEVEL 109 MMOL/L (98-107); CREATININE FOR GFR 0.55 MG/DL (0.55-1.30); GLOMERULAR FILTRATION RATE > 90.0 (>39); MAGNESIUM LEVEL 1.8 MG/DL (1.8-2.4); POTASSIUM SERUM 3.3 MMOL/L (3.5-5.1); SODIUM LEVEL 143 MMOL/L (136-145)
[2024-11-27] MEDS: LOSARTAN 25 MG TAB PO SCH (08:07)
[2024-11-27] MEDS: KCL 10MEQ/100ML SWI (KRUN) 10 MEQ in IV 1 EA IV SCH (08:16)
[2024-11-27] MEDS ORDERED: hydroCHLOROthiazide 25 MG TAB PO SCH (09:00)
[2024-11-27 12:00] VITALS: BP 131/82; TEMP 97.3; O2SAT 98
[2024-11-27] MEDS ORDERED: CEFPODOXIME PROXETIL 200 MG TABLET PO SCH (12:00)
[2024-11-27 19:36] VITALS: BP 133/80; TEMP 97.5; O2SAT 99
[2024-11-27] MEDS: CEFDINIR 250 MG/5 ML 60 ML SUSP BTL PO SCH (20:40)
[2024-11-28 05:10] VITALS: BP 138/79; TEMP 97.9; O2SAT 95
[2024-11-28 11:00] VITALS: BP 139/72; TEMP 97.5; O2SAT 98
[2024-11-28] MEDS: CEFDINIR 300 MG CAP PO SCH (20:32)
[2024-11-28 20:33] VITALS: BP 162/84; TEMP 97.2; O2SAT 98
[2024-11-29 04:47] VITALS: BP 152/82; TEMP 97.7; O2SAT 99
[2024-11-29 07:55] LABS: PLATELET COUNT, AUTOMATED 169 10^3/uL (150-450)
[2024-11-29] MEDS: PANTOPRAZOLE 40MG VIAL IV SCH (08:15)
[2024-11-29] MEDS: ASPIRIN 81 MG CHEWABLE TABLET PO SCH (08:15)
[2024-11-29 08:36] LABS: CALCIUM LEVEL 8.1 MG/DL (8.3-10.6); CARBON DIOXIDE LEVEL 22 MMOL/L (20-31); CHLORIDE LEVEL 112 MMOL/L (98-107); CREATININE FOR GFR 0.42 MG/DL (0.55-1.30); GLOMERULAR FILTRATION RATE > 90.0 (>39); MAGNESIUM LEVEL 1.4 MG/DL (1.8-2.4); POTASSIUM SERUM 3.2 MMOL/L (3.5-5.1); SODIUM LEVEL 143 MMOL/L (136-145)
[2024-11-29] MEDS ORDERED: POTASSIUM CHLORIDE 10% LIQ 20MEQ/15ML UDC PO ONE (08:40)
[2024-11-29] MEDS: KCL 10MEQ/100ML SWI (KRUN) IV SCH (09:58)
[2024-11-29] MEDS: MAGNESIUM GLUCONATE 500 MG TAB PO SCH (10:24)
[2024-11-29 20:52] VITALS: BP 141/75; O2SAT 96
[2024-12-01 03:21] VITALS: BP 131/65; TEMP 97.8; O2SAT 96
[2024-12-02 03:36] VITALS: BP 133/71; TEMP 97.9; O2SAT 98
[2024-12-02 08:52] VITALS: BP 128/73
[2024-12-02] MEDS ORDERED: FLEET ENEMA PR PRN (13:45)
[2024-12-02] MEDS ORDERED: ATROPINE SULFATE 1% OPHTH SOLN 2 ML BTL SL PRN (13:45)
[2024-12-02] MEDS ORDERED: HYOSCYAMINE SULFATE 0.125 MG SUBL TABLET PO PRN (13:45)
[2024-12-02] MEDS: MORPHINE 10 MG/0.5 ML ORAL CONCENTRATE SOLUTION U/D SL PRN (20:52)
[2024-12-02] MEDS: LORazepam 1 MG TAB PO PRN (20:52)
[2024-12-04] MEDS ORDERED: PILL CUTTER 1 EACH XX ONE (08:05)
[2024-12-06] MEDS: FAMOTIDINE 20 MG TAB PO SCH (09:00)
[2024-12-06] MEDS: ACETAMINOPHEN 325 MG TAB PO PRN (12:36)
[2024-12-21] MEDS: CLOTRIMAZOLE 1% TOPICAL CREAM 30 GM TOP SCH (12:25)
[2024-12-28] MEDS: ONDANSETRON 4MG ORAL DISINTEGRATING TAB PO PRN (08:17)
[2024-12-28] MEDS: BISACODYL 10 MG SUPP PR PRN (08:44)
== END 2025-01-05 11:01 | disposition expired | DRG 690 ==
LOC: EDBD 15:57 → M ED 15:57 → M ED INP 15:58 → M MSPAV 11-26 12:45 → OBSVTOIN 11-26 18:42
PROVIDERS: ADMIT Internal Medicine; ATTEND Student in an Organized Health Care Education/Training Program
DX: N39.0 Urinary tract infection, site not specified (principal); G93.40 Encephalopathy, unspecified; N17.9 Acute kidney failure, unspecified; R57.1 Hypovolemic shock; F03.90 Unspecified dementia, unspecified severity, without behavioral disturbance, psychotic disturbance, mood disturbance, and anxiety; Z66 Do not resuscitate; I46.9 Cardiac arrest, cause unspecified; I49.9 Cardiac arrhythmia, unspecified; R62.7 Adult failure to thrive; M25.572 Pain in left ankle and joints of left foot; B96.20 Unspecified Escherichia coli [E. coli] as the cause of diseases classified elsewhere; B35.3 Tinea pedis; I10 Essential (primary) hypertension; R13.12 Dysphagia, oropharyngeal phase; G47.33 Obstructive sleep apnea (adult) (pediatric); S82.832D Other fracture of upper and lower end of left fibula, subsequent encounter for closed fracture with routine healing; E83.42 Hypomagnesemia; K21.9 Gastro-esophageal reflux disease without esophagitis; R74.01 Elevation of levels of liver transaminase levels; E87.6 Hypokalemia; T50.2X5A Adverse effect of carbonic-anhydrase inhibitors, benzothiadiazides and other diuretics, initial encounter; Z79.82 Long term (current) use of aspirin; Z79.899 Other long term (current) drug therapy; Z88.8 Allergy status to other drugs, medicaments and biological substances

== ENCOUNTER → 2024-11-26 | Outpatient (CLI) | payer MEDICARE, OTHER, MEDICAID ==
[~2024-11-26] MED LIST changes: +MED REC COMMENT
== END ==
LOC: M SOG 07:29
PROVIDERS: ATTEND Orthopaedic Surgery
DX: Z53.9 Procedure and treatment not carried out, unspecified reason (principal)